=== PATIENT | female | born 1965 | race Caucasian/White ===

== ENCOUNTER 2016-10-17 00:06 | Emergency (ER) | payer OTHER, BC ==
--- NOTE | 2016-10-17 00:18 | PDOC ---
History of Present Illness - General Chief Complaint: Back Pain Stated Complaint: BACK PAIN/ANXIETY Time Seen by Provider: 10/17/16 00:17 History Source: Patient Exam Limitations: No Limitations - History of Present Illness Initial Comments: 10/17/16 00:22 This is a 50-year-old female with history of ankylosing spondylosis who is back pain for which she is taking medication. Patient became anxious and worried about her back pain and came in for evaluation. Patient denied any chest pain, shortness of breath, nausea, diaphoresis, vomiting or diarrhea. Patient denied any fevers or chills. Patient denied any cough or congestion. Patient is otherwise healthy said that she does have a history of anxiety for which she takes clonazepam but did not take any of her clonazepam prior to coming in. PAST MEDICAL HISTORY: no significant history PAST SURGICAL HISTORY: no significant history FAMILY HISTORY: no pertinant history SOCIAL HISTORY: Pt lives with family and is employed. MEDICATIONS: reviewed ALLERGIES: As per nursing notes Review of Systems General: No fevers or chills, no weakness, no weight loss HEENT: No change in vision. No sore throat,. No ear pain CardioVascular: No chest pain or shortness of breath Respiratory:No cough, or wheezing. Gastrointestinal: no nausea, vomitting, diarrhea or constipation, No rectal bleeding Genitourinary: No dysuria, hematuria, or frequency Musculoskeletal: Chronic back pain as per history of present illness Neurologic: No headache, vertigo, dizziness or loss of consciousness Psychiatric: nor depression Skin: No rashes or easy bruising Endocrine: no increased thirst or abnormal weight change Allergic: no skin or latex allergy All other systems reviewed and normal Exam: General: Well-nourished well-developed individual, no acute distress but very anxious HEENT: Throat: Normal, tonsils normal, no erythema or exudate Neck: Supple, no meningeal signs, no lymphadenopathy Eyes::Pupils equal reactive and round, extraocular motion intact Chest: Nontender to palpation Cardiac: S1-S2 normal, regular rate and rhythm, no murmurs rubs or gallops Respiratory: Lungs clear to auscultation bilateral Abdomen: Soft, nondistended, normal bowel sounds, nontender to palpation diffusely Extremities: Warm, dry, no cyanosis, clubbing, or edema Skin: No rashes Neuro: Alert and oriented x3, nonfocal exam, grossly intact, normal gait Psych: Normal mood and affect assessment and plan: Assessment and plan This is a 50-year-old female comes in with anxiety health secondary to chronic pain that she has patient had an exam and was reassured. Patient was told she should go home take some of her anxiety medication follow- up with her doctor. Past History - Past Medical History Allergies/Adverse Reactions: Allergies Allergy/AdvReac Type Severity Reaction Status Date / Time mushroom Allergy Verified 10/17/16 00:09 prochlorperazine edisylate AdvReac Intermediate jumping Verified 10/17/16 00:09 [From Compazine] out of my skin prochlorperazine maleate AdvReac Intermediate jumping Verified 10/17/16 00:09 [From Compazine] out of my skin Home Medications: Ambulatory Orders Dexlansoprazole [Dexilant] 60 mg PO DAILY 04/30/16 Oxycodone Sr [Oxycontin] 20 mg PO BID 04/30/16 Trazodone HCl 100 mg PO DAILY 04/30/16 Venlafaxine HCl [Effexor -] 150 mg PO DAILY 04/30/16 Zolpidem Tartrate [Ambien] 10 mg PO HS 05/02/16 Clonazepam [Klonopin] 0.5 mg PO TID tablet 05/18/16 Fluphenazine HCl 10 mg PO DAILY tablet 10/13/16 Anemia: Yes (TREATED WITH IRON IN THE PAST) Asthma: No Cancer: No Cardiac Disorders: No CVA: No COPD: Yes (MILD COPD-DX 2010 NO MEDS) CHF: No Dementia: No Diabetes: No GI Disorders: Yes (REFLUX) Disorders: No HTN: Yes (RECENT DX 05/2013 start norvasc) Hypercholesterolemia: No Liver Disease: No Seizures: No Thyroid Disease: No - Surgical History Abdominal Surgery: No Appendectomy: No Cardiac Surgery: No Cholecystectomy: No Lung Surgery: No Neurologic Surgery: No Orthopedic Surgery: No - Psycho/Social/Smoking Cessation Hx Anxiety: No Suicidal Ideation: No Smoking Status: No Smoking History: Former smoker Have you smoked in the past 12 months: No Number of Cigarettes Smoked Daily: 10 If you are a former smoker, when did you quit?: 2011 Hx Alcohol Use: Yes (RECOVERING ALCHOLIC,RECENT RELAPSE.) Drug/Substance Use Hx: Yes (PRESCRIBED.) Substance Use Type: Opiates, Prescribed Hx Substance Use Treatment: No *DC/Admit/Observation/Transfer Diagnosis at time of Disposition: Anxiety about health - Discharge Dispostion Disposition: HOME Condition at time of disposition: Stable Admit: No - Patient Instructions Additional Instructions: Take your clonazepam when you get home. Return to the emergency department immediately with ANY new, persistent or worsening symptoms. Continue any medications as previously prescribed by your physician. You should follow up with your primary doctor as soon as possible regarding today's emergency department visit. . Please make sure your doctor reviews the results of your emergency evaluation. Thank you for coming to the Emergency Department today for your care. It was a pleasure to see you today. Please note that your evaluation is INCOMPLETE until you follow-up with your doctor.
[2016-10-17 00:22] VITALS: BP 159/102; PULSE 68; TEMP 98; BMI 18.0
== END 2016-10-17 00:29 | disposition home or self-care (01) ==
LOC: FER 00:06
DX: F06.4 Anxiety disorder due to known physiological condition (principal); G89.29 Other chronic pain; K21.9 Gastro-esophageal reflux disease without esophagitis; I10 Essential (primary) hypertension; Z87.891 Personal history of nicotine dependence; D64.9 Anemia, unspecified
CPT/HCPCS: 99281-25

== ENCOUNTER 2017-03-06 19:41 | Emergency (ER) | payer OTHER, BC ==
[2017-03-06 19:47] VITALS: BMI 18.0
--- NOTE | 2017-03-06 19:51 | PDOC ---
Rapid Medical Evaluation Time Seen by Provider: 03/06/17 19:43 Medical Evaluation: Allergies Allergy/AdvReac Type Severity Reaction Status Date / Time mushroom Allergy Verified 10/17/16 00:09 prochlorperazine edisylate AdvReac Intermediate jumping Verified 10/17/16 00:09 [From Compazine] out of my skin prochlorperazine maleate AdvReac Intermediate jumping Verified 10/17/16 00:09 [From Compazine] out of my skin 03/06/17 19:43 I have performed a brief in-person evaluation of this patient. The patient presents with a chief complaint of: possible seizure tonight per pt' s sister. H/o depression/anxiety on klonopin, anemia, COPD Pertinent physical exam findings: Stable and oriented x 3 but appears somewhat somnolent I have ordered the following:chem/cbc/lactate/ua The patient will proceed to the ED for further evaluation. 03/06/17 19:47
[2017-03-06] MEDS ORDERED: SODIUM CHLORIDE 1,000 ML IV STA (20:20)
[2017-03-06 20:47] LABS: BASOPHIL 0.9 % (0-2.0); EOSINOPHIL 0.4 % (0-4.5); MCH 29.5 pg (25.7-33.7); MCHC 32.6 g/dl (32.0-36.0); MEAN CELL VOLUME 90.3 fl (80-96); MEAN PLT VOLUME 9.9 fl (7.5-11.1); NEUTROPHILS 62.4 % (42.8-82.8); PLATELET COUNT 169 K/MM3 (134-434); RDW 13.3 % (11.6-15.6); WHITE BLOOD COUNT 3.9 K/mm3 (4.0-10.0)
[2017-03-06 20:48] LABS: URINE APPEARANCE CLEAR; URINE BILIRUBIN NEGATIVE (NEGATIVE); URINE BLOOD NEGATIVE (NEGATIVE); URINE COLOR STRAW; URINE GLUCOSE (UA) NEGATIVE (NEGATIVE); URINE KETONE TRACE (NEGATIVE); URINE NITRITE NEGATIVE (NEGATIVE); URINE PROTEIN NEGATIVE (NEGATIVE); URINE UROBILINOGEN NEGATIVE E.U./dl (0.2-1.0)
[2017-03-06 20:57] LABS: URINE MARIJUANA THC NEGATIVE ng/ml (CUTOFF=50)
[2017-03-06 21:15] LABS: ALK PHOS 82 U/L (45-117); ANION GAP 7 (8-16); BILIRUBIN,TOTAL 0.3 mg/dL (0.2-1.0); CO2 29 mmol/L (21-32); CREATININE 0.6 mg/dL (0.55-1.02); GLUCOSE,RANDOM 88 mg/dL (74-106); SGOT/AST 18 U/L (15-37); SGPT/ALT 32 U/L (12-78); TOT PROT 6.7 g/dl (6.4-8.2)
[2017-03-06 21:27] LABS: URINE LEUK ESTERASE TRACE (NEGATIVE)
[2017-03-06 21:38] LABS: URINE WBC 1 /hpf (3-5)
[2017-03-06] MEDS ORDERED: ACETAMINOPHEN/CAFFEINE/BUTALBITAL 1 TAB PO ONE (22:09)
[2017-03-06] MEDS ORDERED: ACETAMINOPHEN/CAFFEINE/BUTALBITAL 1 TAB ONE (22:18)
--- NOTE | 2017-03-06 22:27 | PDOC ---
History of Present Illness - General Chief Complaint: Seizure Stated Complaint: SEIZURE Time Seen by Provider: 03/06/17 19:43 History Source: Patient, Family (Sister) Exam Limitations: No Limitations - History of Present Illness Initial Comments: 03/06/17 22:17 51yo Female patient w/ PmHx: Depression, Anxiety, "Huffing compressed air," presents to ED with sister c/o possible seizure. Sister states patient has hx: of huffing compressed air, had abstain from this behavior for 11 years when she relapse last fall. Sister states, she believes patient huffed " Compressed gas duster," and witnessed patient have a seizure. Sister described patient as having a tonic-like seizure for approximately 5 mins, then stopped, appeared confused then came to after a few seconds. Sister encouraged patient to come in for evaluation. The main ingredient in these compressed gas can is difluoroethane. Past History - Past Medical History Allergies/Adverse Reactions: Allergies Allergy/AdvReac Type Severity Reaction Status Date / Time chlorpromazine HCl Allergy Verified 03/06/17 23:57 [From Thorazine] mushroom Allergy Verified 03/06/17 23:57 prochlorperazine edisylate AdvReac Intermediate jumping Verified 03/06/17 23:57 [From Compazine] out of my skin prochlorperazine maleate AdvReac Intermediate jumping Verified 03/06/17 23:57 [From Compazine] out of my skin Home Medications: Ambulatory Orders Clonazepam [Klonopin] 0.5 mg PO TID tablet 05/18/16 Fluphenazine HCl 10 mg PO DAILY tablet 10/13/16 Zolpidem Tartrate [Ambien] 5 mg PO HS #5 tablet 02/16/17 Anemia: Yes (TREATED WITH IRON IN THE PAST) Asthma: No Cancer: No Cardiac Disorders: No CVA: No COPD: Yes (MILD COPD-DX 2010 NO MEDS) CHF: No Dementia: No Diabetes: No GI Disorders: Yes (REFLUX) Disorders: No HTN: Yes (RECENT DX 05/2013 start norvasc) Hypercholesterolemia: No Liver Disease: No Psychiatric Problems: Yes (depression, anxiety) Seizures: No Thyroid Disease: No - Surgical History Abdominal Surgery: No Appendectomy: No Cardiac Surgery: No Cholecystectomy: No Lung Surgery: No Neurologic Surgery: No Orthopedic Surgery: No - Psycho/Social/Smoking Cessation Hx Anxiety: No Suicidal Ideation: No Smoking Status: No Smoking History: Never smoked Have you smoked in the past 12 months: No Number of Cigarettes Smoked Daily: 10 If you are a former smoker, when did you quit?: 2011 Information on smoking cessation initiated: No 'Breaking Loose' booklet given: 10/17/16 Hx Alcohol Use: Yes (RECOVERING ALCHOLIC,RECENT RELAPSE.) Drug/Substance Use Hx: Yes (PRESCRIBED.) Substance Use Type: Opiates, Prescribed Hx Substance Use Treatment: No *Physical Exam - Vital Signs Last Vital Signs Temp Pulse Resp BP Pulse Ox 97.8 F 77 18 125/72 100 03/06/17 19:44 03/06/17 19:44 03/06/17 19:44 03/06/17 19:44 03/06/17 19:44 Heart Score/ECG Review - History History: Slightly suspicious - Electrocardiogram EKG: Normal - Age Age: 45-65 - Risk Factors Risk Factors Heart Score: No Hx Hypercholesterolemia, No Hx Hypertension, No Hx Diabetes, No Smoking History, No Positive family hx of cardiac disease, No Hx Obesity Based on the list above the patient has:: No risk factors known - Troponin Troponin: </= normal limit - Score Heart Score - Total: 1 - ECG Impressions Normal ECG: Yes Non-specific ST Elevation: No Ischemic Changes: No Bradycardia: Yes Torsades alison Pointes: No WPW: No Comment:: 03/07/17 03:56 Sinus Bradycardia. Patient resting/sleeping during this ECG. Upon ambulation out of bed patient HR >65 bpm. ED Treatment Course - LABORATORY CBC & Chemistry Diagram: 03/06/17 20:30 03/06/17 20:30 - ADDITIONAL ORDERS Additional order review: Laboratory Results 03/06/17 03/06/17 03/06/17 21:30 20:30 20:30 Sodium Potassium Chloride Carbon Dioxide Anion Gap BUN Creatinine Creat Clearance w eGFR Random Glucose Lactic Acid 0.9 Calcium Total Bilirubin AST ALT Alkaline Phosphatase Total Protein Albumin Serum , Qual Negative Urine Color Urine Appearance Urine pH Urine Protein Urine Glucose (UA) Urine Ketones Urine Blood Urine Nitrite Urine Bilirubin Urine Urobilinogen Ur Leukocyte Esterase Urine RBC Urine WBC Ur Epithelial Cells Opiates Screen Negative Methadone Screen Negative Barbiturate Screen Negative Phencyclidine Screen Negative Ur Amphetamines Screen Negative MDMA (Ecstasy) Screen Negative Benzodiazepines Screen Negative Cocaine Screen Negative U Marijuana (THC) Screen Negative 03/06/17 03/06/17 20:30 20:30 Sodium 142 Potassium 3.7 Chloride 106 Carbon Dioxide 29 D Anion Gap 7 L BUN 14 D Creatinine 0.6 D Creat Clearance w eGFR > 60 Random Glucose 88 D Lactic Acid Calcium 9.0 Total Bilirubin 0.3 AST 18 ALT 32 Alkaline Phosphatase 82 Total Protein 6.7 Albumin 4.0 Serum , Qual Urine Color Straw Urine Appearance Clear Urine pH 7.0 D Urine Protein Negative Urine Glucose (UA) Negative Urine Ketones Trace H Urine Blood Negative Urine Nitrite Negative Urine Bilirubin Negative Urine Urobilinogen Negative Ur Leukocyte Esterase Trace H D Urine RBC None Urine WBC 1 Ur Epithelial Cells Rare Opiates Screen Methadone Screen Barbiturate Screen Phencyclidine Screen Ur Amphetamines Screen MDMA (Ecstasy) Screen Benzodiazepines Screen Cocaine Screen U Marijuana (THC) Screen 03/06/17 20:30 RBC 4.23 MCV 90.3 MCHC 32.6 RDW 13.3 MPV 9.9 Neutrophils % 62.4 Lymphocytes % 26.9 Monocytes % 9.4 Eosinophils % 0.4 D Basophils % 0.9 - RADIOLOGY Radiology Studies Ordered: Category Date Time Status HEAD CT WITHOUT CONTRAST [CT] Stat CT Scan 03/06/17 20:20 Completed CHEST PA LAT W/OB [RAD] Stat Radiology 03/06/17 20:20 Ordered - Medications Given in the ED: ED Medications Discontinued Medications Generic Name Dose Route Start Last Admin Trade Name Freq PRN Reason Stop Dose Admin Sodium Chloride 1,000 mls @ 1,000 mls/hr 03/06/17 20:20 03/06/17 20:57 Normal Saline - IV 03/06/17 21:19 1,000 mls/hr ASDIR STA Administration *DC/Admit/Observation/Transfer Diagnosis at time of Disposition: Seizure - Discharge Dispostion Disposition: HOME Condition at time of disposition: Improved Admit: No - Patient Instructions Printed Discharge Instructions: DI for Seizure Disorder -- Adult Additional Instructions: FOLLOW UP WITH YOUR PRIMARY CARE PROVIDER THIS WEEK FOR FURTHER TREATMENT AND EVALUATION. RETURN IF SYMPTOMS WORSEN OR ANY CONCERNS FOR FURTHER EVALUATION. Print Language: UZBEK
[2017-03-06 22:47] LABS: TROPONIN I < 0.02 ng/ml (0.00-0.05)
--- NOTE | 2017-03-06 23:16 | PDOC ---
*Physical Exam - Vital Signs Last Vital Signs Temp Pulse Resp BP Pulse Ox 97.8 F 77 18 125/72 100 03/06/17 19:44 03/06/17 19:44 03/06/17 19:44 03/06/17 19:44 03/06/17 19:44 ED Treatment Course - LABORATORY CBC & Chemistry Diagram: 03/06/17 20:30 03/06/17 20:30 - ADDITIONAL ORDERS Additional order review: Laboratory Results 03/06/17 03/06/17 03/06/17 21:30 20:30 20:30 Sodium Potassium Chloride Carbon Dioxide Anion Gap BUN Creatinine Creat Clearance w eGFR Random Glucose Lactic Acid 0.9 Calcium Total Bilirubin AST ALT Alkaline Phosphatase Creatine Kinase Troponin I Total Protein Albumin Serum , Qual Negative Urine Color Urine Appearance Urine pH Ur Specific Coleman Urine Protein Urine Glucose (UA) Urine Ketones Urine Blood Urine Nitrite Urine Bilirubin Urine Urobilinogen Ur Leukocyte Esterase Urine RBC Urine WBC Ur Epithelial Cells Opiates Screen Negative Methadone Screen Negative Barbiturate Screen Negative Phencyclidine Screen Negative Ur Amphetamines Screen Negative MDMA (Ecstasy) Screen Negative Benzodiazepines Screen Negative Cocaine Screen Negative U Marijuana (THC) Screen Negative 03/06/17 03/06/17 03/06/17 20:30 20:30 20:15 Sodium 142 Potassium 3.7 Chloride 106 Carbon Dioxide 29 D Anion Gap 7 L BUN 14 D Creatinine 0.6 D Creat Clearance w eGFR > 60 Random Glucose 88 D Lactic Acid Calcium 9.0 Total Bilirubin 0.3 AST 18 ALT 32 Alkaline Phosphatase 82 Creatine Kinase 74 Troponin I < 0.02 Total Protein 6.7 Albumin 4.0 Serum , Qual Urine Color Straw Urine Appearance Clear Urine pH 7.0 D Ur Specific Coleman 1.010 Urine Protein Negative Urine Glucose (UA) Negative Urine Ketones Trace H Urine Blood Negative Urine Nitrite Negative Urine Bilirubin Negative Urine Urobilinogen Negative Ur Leukocyte Esterase Trace H D Urine RBC None Urine WBC 1 Ur Epithelial Cells Rare Opiates Screen Methadone Screen Barbiturate Screen Phencyclidine Screen Ur Amphetamines Screen MDMA (Ecstasy) Screen Benzodiazepines Screen Cocaine Screen U Marijuana (THC) Screen 03/06/17 20:30 RBC 4.23 MCV 90.3 MCHC 32.6 RDW 13.3 MPV 9.9 Neutrophils % 62.4 Lymphocytes % 26.9 Monocytes % 9.4 Eosinophils % 0.4 D Basophils % 0.9 - Medications Given in the ED: ED Medications Discontinued Medications Generic Name Dose Route Start Last Admin Trade Name Eliezer PRN Reason Stop Dose Admin Acetaminophen/Butalbital/Caffeine 1 tablet 03/06/17 22:09 03/06/17 22:25 Fioricet - PO 03/06/17 22:10 1 tablet ONCE ONE Administration Sodium Chloride 1,000 mls @ 1,000 mls/hr 03/06/17 20:20 03/06/17 20:57 Normal Saline - IV 03/06/17 21:19 1,000 mls/hr ASDIR STA Administration Medical Decision Making - Medical Decision Making 03/06/17 23:16 agree with care from [employer] Srinivas *DC/Admit/Observation/Transfer Diagnosis at time of Disposition: Seizure - Referrals Referrals: Eriberto Rodriguez MD [Primary Care Provider] - - Patient Instructions Printed Discharge Instructions: DI for Seizure Disorder -- Adult Additional Instructions: FOLLOW UP WITH YOUR PRIMARY CARE PROVIDER THIS WEEK FOR FURTHER TREATMENT AND EVALUATION. RETURN IF SYMPTOMS WORSEN OR ANY CONCERNS FOR FURTHER EVALUATION. Print Language: ANGUILLAN
[2017-03-07 03:51] VITALS: BP 120/70; PULSE 64; TEMP 98
== END 2017-03-07 04:10 | disposition home or self-care (01) ==
LOC: JER 19:41
DX: G40.89 Other seizures (principal); I10 Essential (primary) hypertension; J44.9 Chronic obstructive pulmonary disease, unspecified; F41.8 Other specified anxiety disorders; D64.9 Anemia, unspecified
CPT/HCPCS: 36415; 70450-TC; 71022-TC; 80053; 80307; 81003; 81015; 82550; 83605; 84484; 84703; 85025; 99283-25

== ENCOUNTER 2018-11-03 16:01 | Observation (INO) | payer OTHER, BC ==
[2018-11-03 16:32] VITALS: BMI 16.2
[2018-11-03] MEDS ORDERED: DIPHTH,PERTUSS(ACELL),TET 0.5 ML DISP.SYRIN IM ONE ×2 (17:16→18:27)
--- NOTE | 2018-11-03 17:27 | PDOC ---
History of Present Illness - General Chief Complaint: Injury Stated Complaint: injury, nose,back Time Seen by Provider: 11/03/18 16:02 - History of Present Illness Initial Comments: 11/03/18 18:35 The patient is a 52 year old female, with a significant PMH of ankylosing spondylosis, Hbl 27+, spinal stenosis, and depression who presents to the emergency department s/p fall at 4am today. The patient states she was helping her mom out of bed today when they both fell backward, hitting her back on a railing and then falling a different way and hitting her nose on a desk. Patient reports able to ambulate but that it exacerbates the pain. Patient initially denies LOC, but later informed the team that she may have actually passed out. States she did not want to notify us earlier because the doctors always tell her she has a "weight problem." She also reports muscle spasms in her low back and lower extremities. Unknown last tetanus. The patient denies chest pain, shortness of breath, headache and dizziness. Denies fever, chills, nausea, vomit, diarrhea and constipation. Denies dysuria, frequency, urgency and hematuria. Allergies: chlorpromazine HCl, mushroom, prochlorperazine edisylate, prochlorperazine maleate PCP: Dr. Rodriguez Past History - Past Medical History Allergies/Adverse Reactions: Allergies Allergy/AdvReac Type Severity Reaction Status Date / Time chlorpromazine HCl Allergy Verified 09/17/18 17:32 [From Thorazine] mushroom Allergy Verified 09/17/18 17:32 prochlorperazine edisylate AdvReac Intermediate jumping Verified 09/17/18 17:32 [From Compazine] out of my skin prochlorperazine maleate AdvReac Intermediate jumping Verified 09/17/18 17:32 [From Compazine] out of my skin Home Medications: Ambulatory Orders clonazePAM [Klonopin] 1 mg PO TID tablet 05/18/16 Zolpidem Tartrate [Ambien] 5 mg PO HS #5 tablet 02/16/17 Oxycodone HCl/Acetaminophen [Percocet 10-325 mg Tablet] 1 each PO QID PRN Venlafaxine HCl ER [Effexor Xr -] 150 mg PO DAILY 02/26/18 oxyCODONE SR [Oxycontin] 20 mg PO BID 02/26/18 Metoclopramide HCl [Reglan] 5 mg PO QID PRN #20 tablet MDD 4 09/17/18 traZODone HCL [Trazodone HCl] 200 mg PO HS 09/17/18 Anemia: Yes (TREATED WITH IRON IN THE PAST) Asthma: No Cancer: No Cardiac Disorders: No CVA: No COPD: No CHF: No Dementia: No Diabetes: No GI Disorders: Yes (REFLUX) Disorders: No HTN: No Hypercholesterolemia: No Liver Disease: No Psychiatric Problems: Yes (depression, anxiety) Seizures: No Thyroid Disease: No - Surgical History Abdominal Surgery: No Appendectomy: No Cardiac Surgery: No Cholecystectomy: No Lung Surgery: No Neurologic Surgery: No Orthopedic Surgery: No - Suicide/Smoking/Psychosocial Hx Smoking Status: No Smoking History: Never smoked Have you smoked in the past 12 months: No Number of Cigarettes Smoked Daily: 10 If you are a former smoker, when did you quit?: 2011 Information on smoking cessation initiated: No 'Breaking Loose' booklet given: 10/17/16 Hx Alcohol Use: No Drug/Substance Use Hx: No Substance Use Type: Opiates, Prescribed Hx Substance Use Treatment: No Review of Systems - Review of Systems Comments:: 11/03/18 18:36 GENERAL/CONSTITUTIONAL: No fever or chills. No weakness. HEAD, EYES, EARS, NOSE AND THROAT: No change in vision. No ear pain or discharge. No sore throat. GASTROINTESTINAL: No nausea, vomiting, diarrhea or constipation. GENITOURINARY: No dysuria, frequency, or change in urination. CARDIOVASCULAR: No chest pain or shortness of breath. RESPIRATORY: No cough, wheezing, or hemoptysis. MUSCULOSKELETAL: (+) back pain. (+) nose pain. (+)low back muscle spasms. No neck pain. SKIN: No rash NEUROLOGIC: No headache, vertigo, or change in strength/sensation. +LOC ENDOCRINE: No increased thirst. No abnormal weight change. HEMATOLOGIC/LYMPHATIC: No anemia, easy bleeding, or history of blood clots. ALLERGIC/IMMUNOLOGIC: No hives or skin allergy. *Physical Exam - Vital Signs Last Vital Signs Temp Pulse Resp BP Pulse Ox 98.3 F 80 20 118/88 96 11/03/18 16:02 11/03/18 16:02 11/03/18 16:02 11/03/18 16:02 11/03/18 16:02 - Physical Exam Comments: 11/03/18 18:37 GENERAL: Awake, alert, and fully oriented, in no acute distress HEAD: No signs of trauma EYES: PERRLA, EOMI, sclera anicteric, conjunctiva clear ENT: (+) Superficial abrasion and edema over nasal bridge. Auricles normal inspection, hearing grossly normal, nares patent, oropharynx clear without exudates. Moist mucosa NECK: Normal ROM, supple, no lymphadenopathy, JVD, or masses LUNGS: Breath sounds equal, clear to auscultation bilaterally. No wheezes, and no crackles HEART: Regular rate and rhythm, normal S1 and S2, no murmurs, rubs or gallops ABDOMEN: Soft, nontender, normoactive bowel sounds. No guarding, no rebound. No masses EXTREMITIES: Normal range of motion, no edema. No cords, erythema, or tenderness BACK: No midline spinal tenderness in cervical/thoracic/lumbar region NEUROLOGICAL: Normal speech, cranial nerves intact, equal strength and sensation b/l SKIN: Warm, Dry, normal turgor, no rashes or lesions noted. Moderate Sedation - Procedure Monitoring Vital Signs: Procedure Monitoring Vital Signs Temperature 98.3 F 11/03/18 16:02 Pulse Rate 80 11/03/18 16:02 Respiratory Rate 20 11/03/18 16:02 Blood Pressure 118/88 11/03/18 16:02 O2 Sat by Pulse Oximetry (%) 96 11/03/18 16:02 ED Treatment Course - LABORATORY CBC & Chemistry Diagram: 11/04/18 07:00 11/04/18 07:00 - RADIOLOGY Radiology Studies Ordered: Category Date Time Status CERVICAL SPINE CT W/O CONTR [CT] Stat CT Scan 11/03/18 17:[address] W/O CONTRAST [CT] Stat CT Scan 11/03/18 17:[address] WITHOUT CONTRAST [CT] Stat CT Scan 11/03/18 17:12 Ordered Medical Decision Making - Medical Decision Making 11/03/18 17:20 52yo F hx ankylosing spondylitis presents to the ED with nasal and back pain after her mother fell onto her and her face struck a desk. Pt initially denies LOC, but later states she was not sure. Vitals wnl. Exam with superficial abrasion and edema over the bridge of her nose. No other bony ttp on the face. No midline spinal ttp, pt is neuro intact. Plan for trauma w/u with CTH, facial bones, CT c-spine, labs, EKG and reassess. 11/03/18 19:00 Abrasion on nose cleaned and irrigated. Does not need stiches or dermabond, very superficial. S/p tdap Labs thus far wnl. CT facial bones and CT c-spine wnl CTH pending but looks normal on my read EKG with new anterior TWI. In light of LOC, plan to admit to obs Once CTH read, pt to be admitted Case signed out to overnight attending for mgmt/dispo *DC/Admit/Observation/Transfer Diagnosis at time of Disposition: Syncope, Prolonged Q-T interval on ECG - Referrals - Patient Instructions - Post Discharge Activity
[2018-11-03] MEDS ORDERED: METHOCARBAMOL 500 MG TABLET PO ONE (18:23)
[2018-11-03 18:24] LABS: BASO % 0.7 % (0-2.0); EOS % 0.5 % (0-4.5); HEMATOCRIT 40.2 % (32.4-45.2); HEMOGLOBIN 13.4 GM/dl (10.7-15.3); MCH 31.1 pg (25.7-33.7); MCHC 33.4 g/dl (32.0-36.0); MEAN CELL VOLUME 93.1 fl (80-96); MEAN PLT VOLUME 8.4 fl (7.5-11.1); MONO % 13.6 % (3.8-10.2); NEUT % 43.2 % (42.8-82.8); PLATELET COUNT 244 K/MM3 (134-434); RBC 4.32 M/mm3 (3.60-5.2); RDW 12.4 % (11.6-15.6); WHITE BLOOD COUNT 3.8 K/mm3 (4.0-10.8)
[2018-11-03] MEDS ORDERED: METHOCARBAMOL 500 MG TABLET ONE ×2 (18:24→18:30)
[2018-11-03 18:43] LABS: ALBUMIN 4.4 g/dl (3.4-5.0); ALK PHOS 93 U/L (45-117); ANION GAP 12 MMOL/L (8-16); BLOOD UREA NITROGEN 15 mg/dl (7-18); CALCIUM 9.7 mg/dl (8.5-10); CHLORIDE 94 mmol/L (98-107); CO2 29 mmol/L (21-32); CREATININE 0.7 mg/dl (0.55-1.3); GLUCOSE,RANDOM 103 mg/dl (74-106); POTASSIUM 3.2 mmol/L (3.5-5.1); SGOT/AST 35 U/L (15-37); SGPT/ALT 36 U/L (13-61); SODIUM 135 mmol/L (136-145); TOT PROT 6.9 g/dl (6.4-8.2)
[2018-11-03 19:02] LABS: ACTIVATED PTT 27.3 SECONDS (25.2-36.5)
[2018-11-03 19:07] LABS: INR 1.17 (0.82-1.09); PROTHROMBIN TIME (PATIENT) 13.1 SEC (10.2-13.0)
--- NOTE | 2018-11-03 19:33 | PDOC ---
*Physical Exam - Vital Signs Last Vital Signs Temp Pulse Resp BP Pulse Ox 98.3 F 80 20 118/88 96 11/03/18 16:02 11/03/18 16:02 11/03/18 16:02 11/03/18 16:02 11/03/18 16:02 ED Treatment Course - LABORATORY CBC & Chemistry Diagram: 11/03/18 18:16 11/03/18 18:16 - ADDITIONAL ORDERS Additional order review: Laboratory Results 11/03/18 11/03/18 11/03/18 18:50 18:16 18:16 PT with INR 13.1 H INR 1.17 PTT (Actin FS) 27.3 Sodium 135 L Potassium 3.2 L Chloride 94 L Carbon Dioxide 29 Anion Gap 12 BUN 15 Creatinine 0.7 Creat Clearance w eGFR > 60 Random Glucose 103 Calcium 9.7 Total Bilirubin 1.0 AST 35 ALT 36 Alkaline Phosphatase 93 Troponin I < 0.03 Total Protein 6.9 Albumin 4.4 11/03/18 18:16 RBC 4.32 MCV 93.1 MCHC 33.4 RDW 12.4 MPV 8.4 Neutrophils % 43.2 Lymphocytes % 42.0 H Monocytes % 13.6 H Eosinophils % 0.5 Basophils % 0.7 - Medications Given in the ED: ED Medications Discontinued Medications Generic Name Dose Route Start Last Admin Trade Name Freq PRN Reason Stop Dose Admin Diphtheria/Tetanus/Acell Pertussis 0.5 ml 11/03/18 17:16 11/03/18 18:27 Boostrix - IM 11/03/18 17:17 0.5 ml .ONCE ONE Administration Methocarbamol 1,000 mg 11/03/18 18:23 11/03/18 18:30 Robaxin - PO 11/03/18 18:24 1,000 mg ONCE ONE Administration Oxycodone/Acetaminophen 1 combo 11/03/18 18:23 11/03/18 18:28 Percocet 5/325 - PO 11/03/18 18:24 1 combo ONCE ONE Administration Progress Note - Progress Note Progress Note: Patient transferred to pr from Dr. Marie at 1900 hrs. This is a 52-year-old female with a story that is changing while here in the ED however patient had a syncopal event timing of the syncopal event is uncertain and patient has new flipped T's on echocardiograms as well as a prolonged QT. Patients initial troponin is negative Patient will be given an observation bed to rule her out for cardiac causes as well as a syncope workup *DC/Admit/Observation/Transfer Diagnosis at time of Disposition: Prolonged Q-T interval on ECG Syncope Qualifiers: Syncope type: unspecified Qualified Code(s): R55 - Syncope and collapse - Discharge Dispostion Decision to Admit order: Yes - Referrals - Patient Instructions - Post Discharge Activity
--- NOTE | 2018-11-03 21:22 | HP ---
Admitting History and Physical - Primary Care Physician PCP: Eriberto Rodriguez - Admission Chief Complaint: Syncope History of Present Illness: This is a 52 y/o woman with a PMHx of: Ankylosing Spondylosis, HBL 27+, Spinal Stenosis, Anxiety, Depression, Anorexia. Who presents to the ED with s/p syncopal episode x 1 day. Patient reports while helping her mother out of bed who is around 150 lbs and has edema to her LE, her mother fell on her causing her to hit her back and her nose. The patient is unsure of LOC. She reports having increased pain and spasms to her back. The patient also reports decreased appetite over the last 3 days. She reports unintentional weight loss > 15 lbs over 3 months. Patient denies fever, chills, cough, SOB, CP, palpitations, AP, N/V/D, constipation, dysuria. 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) - Smoking History Smoking history: Never smoked Have you smoked in the past 12 months: No Aproximately how many cigarettes per day: 10 If you are a former smoker, when did you quit?: 2011 - Alcohol/Substance Use Hx Alcohol Use: No - Social History Usual Living Arrangement: Yes: With Parent ADL: Independent History of Recent Travel: No Home Medications - Allergies Allergies/Adverse Reactions: Allergies Allergy/AdvReac Type Severity Reaction Status Date / Time chlorpromazine HCl Allergy Verified 09/17/18 17:32 [From Thorazine] mushroom Allergy Verified 09/17/18 17:32 prochlorperazine edisylate AdvReac Intermediate jumping Verified 09/17/18 17:32 [From Compazine] out of my skin prochlorperazine maleate AdvReac Intermediate jumping Verified 09/17/18 17:32 [From Compazine] out of my skin - Home Medications Home Medications: Ambulatory Orders clonazePAM [Klonopin] 1 mg PO TID tablet 05/18/16 Zolpidem Tartrate [Ambien] 5 mg PO HS #5 tablet 02/16/17 Oxycodone HCl/Acetaminophen [Percocet 10-325 mg Tablet] 1 each PO QID PRN Venlafaxine HCl ER [Effexor Xr -] 150 mg PO DAILY 02/26/18 oxyCODONE SR [Oxycontin] 20 mg PO BID 02/26/18 Metoclopramide HCl [Reglan] 5 mg PO QID PRN #20 tablet MDD 4 09/17/18 traZODone HCL [Trazodone HCl] 200 mg PO HS 09/17/18 Family Disease History - Family Disease History Family Disease History: CA: Father (melanoma 91), Mother (breast ca bilateral 50 and 79), Sister (x 2 breast ca at age 40) Review of Systems - Review of Systems Constitutional: reports: Loss of Appetite, Unintentional Wgt. Loss Eyes: reports: No Symptoms HENT: reports: Other (hematoma to forehead) Neck: reports: No Symptoms Cardiovascular: reports: No Symptoms Respiratory: reports: No Symptoms Gastrointestinal: reports: No Symptoms Genitourinary: reports: No Symptoms Breasts: reports: No Symptoms Reported Musculoskeletal: reports: Back Pain Integumentary: reports: Other (abrasion to nose) Neurological: reports: Syncope Endocrine: reports: No Symptoms Hematology/Lymphatic: reports: No Symptoms Psychiatric: reports: No Symptoms Physical Examination Vital Signs: Vital Signs Temperature 98.3 F 11/03/18 16:02 Pulse Rate 80 11/03/18 16:02 Respiratory Rate 20 11/03/18 16:02 Blood Pressure 118/88 11/03/18 16:02 O2 Sat by Pulse Oximetry (%) 96 11/03/18 16:02 Constitutional: Yes: Calm, Cachectic Eyes: Yes: WNL, Conjunctiva Clear, EOM Intact, PERRL HENT: Yes: WNL, Atraumatic, Normocephalic Neck: Yes: WNL, Supple, Trachea Midline Cardiovascular: Yes: Regular Rate and Rhythm, S1, S2 Respiratory: Yes: WNL, Regular, CTA Bilaterally Gastrointestinal: Yes: Normal Bowel Sounds, Soft ...Rectal Exam: Yes: Deferred Renal/: Yes: WNL Breast(s): Yes: WNL Musculoskeletal: Yes: Back Pain Extremities: Yes: WNL Edema: No Peripheral Pulses WNL: Yes Integumentary: Yes: Other (abrasion to nose) Neurological: Yes: WNL, Alert, Oriented, Cran Nerves II-XII Intact ...Motor Strength: WNL Psychiatric: Yes: WNL, Alert, Oriented Labs: CBC, BMP 11/03/18 18:16 11/03/18 18:16 Laboratory Results - last 24 hr 11/03/18 11/03/18 11/03/18 18:16 18:16 18:16 WBC 3.8 L RBC 4.32 Hgb 13.4 Hct 40.2 MCV 93.1 MCH 31.1 MCHC 33.4 RDW 12.4 Plt Count 244 MPV 8.4 Absolute Neuts (auto) 1.6 Neutrophils % 43.2 Lymphocytes % 42.0 H Monocytes % 13.6 H Eosinophils % 0.5 Basophils % 0.7 PT with INR 13.1 H INR 1.17 PTT (Actin FS) 27.3 Sodium 135 L Potassium 3.2 L Chloride 94 L Carbon Dioxide 29 Anion Gap 12 BUN 15 Creatinine 0.7 Creat Clearance w eGFR > 60 Random Glucose 103 Calcium 9.7 Total Bilirubin 1.0 AST 35 ALT 36 Alkaline Phosphatase 93 Troponin I Total Protein 6.9 Albumin 4.4 11/03/18 11/04/18 18:50 00:00 WBC RBC Hgb Hct MCV MCH MCHC RDW Plt Count MPV Absolute Neuts (auto) Neutrophils % Lymphocytes % Monocytes % Eosinophils % Basophils % PT with INR INR PTT (Actin FS) Sodium Potassium Chloride Carbon Dioxide Anion Gap BUN Creatinine Creat Clearance w eGFR Random Glucose Calcium Total Bilirubin AST ALT Alkaline Phosphatase Troponin I < 0.03 < 0.02 Total Protein Albumin Intake & Output 11/01/18 11/02/18 11/03/18 11/04/18 23:59 23:59 23:59 23:59 Weight 49.895 kg Prescription Monitoring Program Others' Prescriptions Patient Name: Gertrudis Cook Date: 1965 Address: [address] [place] [address] [place] [address] Sex: Female Rx Written Rx Dispensed Drug Quantity Days Supply Prescriber Name 10/24/2018 10/27/2018 oxycontin er 20 mg tablet 60 30 Eriberto Rodriguez MD 10/17/2018 10/19/2018 oxycodone-acetaminophen 10-325 mg tab 150 30 Eriberto Rodriguez MD 10/03/2018 10/10/2018 zolpidem tart er 12.5 mg tab 30 30 Louis Tapia MD 09/26/2018 09/28/2018 clonazepam 1 mg tablet 75 30 Louis Tapia MD 09/26/2018 09/28/2018 oxycontin er 20 mg tablet 60 30 Eriberto Rodriguez MD 09/13/2018 09/20/2018 oxycodone-acetaminophen 10-325 mg tab 150 30 Eriberto Rodriguez MD Patient Name: Gertrudis Cook Date: 1965 Address: [address] [place] [address] [id number] [place] [address] Sex: Female Rx Written Rx Dispensed Drug Quantity Days Supply Prescriber Name 10/26/2018 10/26/2018 clonazepam 1 mg tablet 21 7 Louis Tapia MD 10/17/2018 10/17/2018 clonazepam 0.5 mg tablet 48 8 Louis Tapia MD Imaging - Results Chest X-ray: Image Reviewed X-ray: Image Reviewed EKG: Image Reviewed (SR with non specific T wave Prolonged QT QT/QTc 400/464) Problem List - Problems (1) Syncope Assessment/Plan: Likely secondary to Arrhythmia vs Medication vs Dehydration Cardiac monitoring Serial Enzymes Echo Appreciate Cardiology consult Monitor CBC, BMP Fall Precautions Code(s): R55 - SYNCOPE AND COLLAPSE Qualifiers: Syncope type: unspecified Qualified Code(s): R55 - Syncope and collapse (2) Prolonged Q-T interval on ECG Assessment/Plan: Likely secondary to Medication Continue Cardiac monitoring Hold home meds- Trazodone, Reglan Code(s): R94.31 - ABNORMAL ELECTROCARDIOGRAM [ECG] [EKG] (3) Hypokalemia Assessment/Plan: Likely secondary to poor appetite Repleted with KCL Monitor BMP Code(s): E87.6 - HYPOKALEMIA (4) Anxiety and depression Assessment/Plan: Continue Klonipin Will need to verify with pt's home pharmacy if still taking Effexor Code(s): F41.9 - ANXIETY DISORDER, UNSPECIFIED; F32.9 - MAJOR DEPRESSIVE DISORDER, SINGLE EPISODE, UNSPECIFIED (5) History of anorexia nervosa Assessment/Plan: f/u with Psychiatry outpatient Code(s): Z86.59 - PERSONAL HISTORY OF OTHER MENTAL AND BEHAVIORAL DISORDERS (6) Cachexia Assessment/Plan: See above RD consult Encourage small frequent meals f/u with PCP outpatient Code(s): R64 - CACHEXIA Assessment/Plan This is a 52 y/o woman placed in Tele Observation for Syncope for further evaluation of their emergent condition Plan: See problem List FEN PO fluids as tolerated Replete lytes prn Regular Diet DVT ppx OOB SCDs Dispo: Observation Visit type - Emergency Visit Emergency Visit: Yes ED Registration Date: 11/03/18 Care time: The patient presented to the Emergency Department on the above date and was hospitalized for further evaluation of their emergent condition. - New Patient This patient is new to me today: Yes Date on this admission: 11/03/18 - Critical Care Critical Care patient: No
[2018-11-03] MEDS ORDERED: KETOROLAC TROMETHAMINE 15 MG/ML VIAL IVPUSH ONE (22:34)
[2018-11-03] MEDS ORDERED: oxyCODONE HCL 5 MG TABLET PO ONE (23:22)
[2018-11-03] MEDS ORDERED: ZOLPIDEM TARTRATE 5 MG TABLET PO ONE (23:23)
[2018-11-04] MEDS ORDERED: POTASSIUM CHLORIDE TABS 20 MEQ TABLET.ER (FP) PO ONE ×2 (04:35→09:26)
[2018-11-04] MEDS ORDERED: oxyCODONE HCL 5 MG TABLET PO ONE (06:20)
--- NOTE | 2018-11-04 08:39 | CON.CARD ---
Consult Consult Specialty:: cardio - History of Present Illness Chief Complaint: fall History of Present Illness: 52 F here with fall and ? syncope. pt gives unusual history. she hadn't eaten anything in 3d [employer], not unusual for her--has eating disorder. yesterday she walked into mother's room to help her change her diaper after urinating, and mother noted pt was bleeding from small lac on bridge of the nose. pt has no recollection whatsoever of trauma to the face that day, or of falling or fainting. she also has no recollection of finding herself on floor or in an unexplained position/circumstances. there was no seizure activity, tongue/cheek biting or urinary/fecal incontinence. she then was trying to pull the diaper out from under mother and straining vigorously in doing so--felt sob and had to stop. then continued trying and mom fell on her and pt hit back (NOT FACE) on hard object. NO LH/PRESYNCOPE OR SYNCOPE AT THAT TIME. and no cp, palpitations. she recalls those events clearly. no positional LH sx's. on klonopin for anxiety long time. once when missed her dose she had withdrawal sz with tongue biting--o/w no sz history denies any non-rx drug use, etoh use. PMH: copd quit smoking 2011 depression, anxiety ankylosing spondylitis HNPs in spine atypical CP anorexia nervosa/bulimia GERD/hiatal hernia FH: father CAD, PAD. mother CAD - Past Medical History Gastrointestinal: Yes: Gastritis ...LMP: 10/20/16 ...: No Psych: Yes: Anxiety, Depression Musculoskeletal: Yes: Chronic low back pain, Other (S) Rheumatology: Yes: Other ( + gene [id number]) - Alcohol/Substance Use Hx Alcohol Use: No - Smoking History Smoking history: Never smoked Have you smoked in the past 12 months: No Aproximately how many cigarettes per day: 10 If you are a former smoker, when did you quit?: 2011 - Social History Usual Living Arrangement: With Parent ADL: Independent History of Recent Travel: No Home Medications - Allergies Allergies/Adverse Reactions: Allergies Allergy/AdvReac Type Severity Reaction Status Date / Time chlorpromazine HCl Allergy Verified 09/17/18 17:32 [From Thorazine] mushroom Allergy Verified 09/17/18 17:32 prochlorperazine edisylate AdvReac Intermediate jumping Verified 09/17/18 17:32 [From Compazine] out of my skin prochlorperazine maleate AdvReac Intermediate jumping Verified 09/17/18 17:32 [From Compazine] out of my skin - Home Medications Home Medications: Ambulatory Orders clonazePAM [Klonopin] 1 mg PO TID tablet 05/18/16 Zolpidem Tartrate [Ambien] 5 mg PO HS #5 tablet 02/16/17 Oxycodone HCl/Acetaminophen [Percocet 10-325 mg Tablet] 1 each PO QID PRN Venlafaxine HCl ER [Effexor Xr -] 150 mg PO DAILY 02/26/18 oxyCODONE SR [Oxycontin] 20 mg PO BID 02/26/18 Metoclopramide HCl [Reglan] 5 mg PO QID PRN #20 tablet MDD 4 09/17/18 traZODone HCL [Trazodone HCl] 200 mg PO HS 09/17/18 Family Disease History - Family Disease History Family Disease History: CA: Father (melanoma 91), Mother (breast ca bilateral 50 and 79), Sister (x 2 breast ca at age 40) Vital Signs: Vital Signs Temperature 97.5 F L 11/04/18 05:00 Pulse Rate 67 11/04/18 05:00 Respiratory Rate 18 11/04/18 05:00 Blood Pressure 111/83 11/04/18 05:00 O2 Sat by Pulse Oximetry (%) 97 11/04/18 04:51 - Other Data Labs, Other Data: CBC, BMP 11/03/18 18:16 11/03/18 18:16 INR, PTT INR 1.17 (0.82-1.09) 11/03/18 18:16 Troponin, BNP 11/03/18 11/04/18 18:50 00:00 Troponin I < 0.03 < 0.02 Troponin, BNP 11/03/18 11/04/18 18:50 00:00 Troponin I < 0.03 < 0.02 Laboratory Tests 11/03/18 11/03/18 11/03/18 18:16 18:16 18:50 WBC 3.8 L Hgb 13.4 Plt Count 244 Sodium 135 L Potassium 3.2 L Carbon Dioxide 29 BUN 15 Creatinine 0.7 AST 35 ALT 36 Troponin I < 0.03 Albumin 4.4 11/04/18 00:00 WBC Hgb Plt Count Sodium Potassium Carbon Dioxide BUN Creatinine AST ALT Troponin I < 0.02 Albumin Assessment/Plan ECG 11/03: NSR, normal axis/intervals. no pathological q waves. NSTWAs anterior leads--no significant change vs office ECG 04/2018 (QTc manually calculated = 440 -458 msec) CXR: hyperinflation, clear lungs/pleura Echo 05/05: nl LV/EF, no RWMA. nl RV. nl LA. mild MR/TR tele: NSR, no events unexplained lac to face, r/o syncope or sz: -pt with no recall whatsoever for how she sustained this injury (DEFINITELY WAS BEFORE SHE HELPED MOM AND FELL IN THE PROCESS). never found herself on the floors. no sz stigmata (once had benzo-withdrawal sz in past, but denies missed benzo doses recently). no orthostatic dizzy sx's on day of admit though felt weak, in setting of 3 days of no po intake (anorexia). -ECG with normal QT and not concerning for channelopathy--pt low risk for malignant arrhythmia with normal echo few months ago -tele benign here thus far--continue monitoring for remainder of today/overnight -ECG here similar to baseline from office 05/05 (has had fluctuating TWAs on prior ECGs, likely related to hypokalemia)., troponin neg x 2, no suspected ischemia sx's--no ischemia w/u indicated -f/u CT head (not reported yet) -VSs stable here--check orthostatic BPs -mild hypokalemia not likely contributory--repleted in ER COPD: -no sx's of a.e. depression, anxiety, eating disorder: -per PMD, psych ankylosing spondylitis, chronic back pain/disc dz, s/p fall with trauma: -pain mgmt per hospitalist
[2018-11-04 08:52] LABS: BASO % 0.8 % (0-2.0); EOS % 1.1 % (0-4.5); HEMATOCRIT 42.2 % (32.4-45.2); HEMOGLOBIN 13.4 GM/dl (10.7-15.3); LYMPH % 42.8 % (8-40); MCHC 31.8 g/dl (32.0-36.0); MEAN CELL VOLUME 94.3 fl (80-96); MEAN PLT VOLUME 8.5 fl (7.5-11.1); MONO % 14.8 % (3.8-10.2); NEUT % 40.5 % (42.8-82.8); PLATELET COUNT 254 K/MM3 (134-434); RBC 4.47 M/mm3 (3.60-5.2); RDW 12.6 % (11.6-15.6)
[2018-11-04 09:10] LABS: ANION GAP 12 MMOL/L (8-16); BLOOD UREA NITROGEN 22 mg/dl (7-18); CALCIUM 9.5 mg/dl (8.5-10); CHLORIDE 96 mmol/L (98-107); CO2 30 mmol/L (21-32); CREATININE 0.7 mg/dl (0.55-1.3); GLUCOSE,RANDOM 91 mg/dl (74-106); MAGNESIUM 2.2 mg/dL (1.8-2.4); PHOSPHOROUS 4.5 mg/dl (2.5-4.9); POTASSIUM 3.2 mmol/L (3.5-5.1); SODIUM 138 mmol/L (136-145)
[2018-11-04] MEDS ORDERED: oxyCODONE HCL 20 MG SUSTAINED ACTING TABLET PO SCH (10:00)
[2018-11-04] MEDS: oxyCODONE HCL 10 MG SUSTAINED ACTING TABLET PO SCH ×2 (10:01→21:21)
[2018-11-04] MEDS: clonazePAM 0.5 MG TABLET PO SCH ×3 (10:01→21:22)
--- NOTE | 2018-11-04 12:18 | PN ---
Physical Exam: SUBJECTIVE: Patient seen and examined, pt reports falling trying to get mother' s diaper off. Mother lost balance and fell onto patient. pt fell back, not face down. denies dizziness, lightheadedness prior to fall. pt with hx of anorexia, has not eaten in past 3 days. pt ambulating on unit, to nurses station asking for pain meds. OBJECTIVE: Vital Signs Period Temp Pulse Resp BP Sys/Garcia Pulse Ox Last 24 Hr 97.5 F-98.3 F 67-80 18-20 104-118/71-88 96-97 GENERAL: The patient is awake, alert, and fully oriented, in no acute distress. HEAD: Normal with no signs of trauma. EYES: PERRL, extraocular movements intact, sclera anicteric, conjunctiva clear. No ptosis. ENT: Ears normal, nares patent, oropharynx clear without exudates, moist mucous membranes. NECK: Trachea midline, full range of motion, supple. LUNGS: Breath sounds equal, clear to auscultation bilaterally, no wheezes, no crackles, no accessory muscle use. HEART: Regular rate and rhythm, S1, S2 without murmur, rub or gallop. ABDOMEN: Soft, nontender, nondistended, normoactive bowel sounds, no guarding, no rebound, no hepatosplenomegaly, no masses. EXTREMITIES: 2+ pulses, warm, well-perfused, no edema. NEUROLOGICAL: Cranial nerves II through XII grossly intact. Normal speech, gait not observed. PSYCH: Normal mood, normal affect. SKIN: mild bruising, with dry blood on bridge of nose Warm, dry, normal turgor, no rashes or lesions noted Laboratory Results - last 24 hr 11/03/18 11/03/18 11/03/18 18:16 18:16 18:16 WBC 3.8 L RBC 4.32 Hgb 13.4 Hct 40.2 MCV 93.1 MCH 31.1 MCHC 33.4 RDW 12.4 Plt Count 244 MPV 8.4 Absolute Neuts (auto) 1.6 Neutrophils % 43.2 Lymphocytes % 42.0 H Monocytes % 13.6 H Eosinophils % 0.5 Basophils % 0.7 PT with INR 13.1 H INR 1.17 PTT (Actin FS) 27.3 Sodium 135 L Potassium 3.2 L Chloride 94 L Carbon Dioxide 29 Anion Gap 12 BUN 15 Creatinine 0.7 Creat Clearance w eGFR > 60 Random Glucose 103 Calcium 9.7 Phosphorus Magnesium Total Bilirubin 1.0 AST 35 ALT 36 Alkaline Phosphatase 93 Creatine Kinase Troponin I Total Protein 6.9 Albumin 4.4 TSH 11/03/18 11/04/18 11/04/18 18:50 00:00 07:00 WBC 4.0 RBC 4.47 Hgb 13.4 Hct 42.2 MCV 94.3 MCH 30.0 MCHC 31.8 L RDW 12.6 Plt Count 254 MPV 8.5 Absolute Neuts (auto) 1.6 Neutrophils % 40.5 L Lymphocytes % 42.8 H Monocytes % 14.8 H Eosinophils % 1.1 Basophils % 0.8 PT with INR INR PTT (Actin FS) Sodium Potassium Chloride Carbon Dioxide Anion Gap BUN Creatinine Creat Clearance w eGFR Random Glucose Calcium Phosphorus Magnesium Total Bilirubin AST ALT Alkaline Phosphatase Creatine Kinase Troponin I < 0.03 < 0.02 Total Protein Albumin TSH 11/04/18 11/04/18 11/04/18 07:00 08:44 08:44 WBC RBC Hgb Hct MCV MCH MCHC RDW Plt Count MPV Absolute Neuts (auto) Neutrophils % Lymphocytes % Monocytes % Eosinophils % Basophils % PT with INR INR PTT (Actin FS) Sodium 138 Potassium 3.2 L Chloride 96 L Carbon Dioxide 30 Anion Gap 12 BUN 22 H Creatinine 0.7 Creat Clearance w eGFR > 60 Random Glucose 91 Calcium 9.5 Phosphorus 4.5 Magnesium 2.2 Total Bilirubin AST ALT Alkaline Phosphatase Creatine Kinase 76 Troponin I Cancelled < 0.03 Total Protein Albumin TSH 0.82 Active Medications Generic Name Dose Route Start Last Admin Trade Name Freq PRN Reason Stop Dose Admin Clonazepam 1 mg 11/04/18 10:00 11/04/18 10:01 Klonopin - PO 1 mg TID MISHA Administration Oxycodone HCl 20 mg 11/04/18 10:00 11/04/18 10:01 Oxycontin - PO 20 mg BID [facility] Administration Oxycodone/Acetaminophen 2 combo 11/04/18 09:54 Percocet 5/325 - PO QID PRN PAIN LEVEL 6-10 Trazodone HCl 200 mg 11/04/18 22:00 Desyrel - PO [facility] ASSESSMENT/PLAN: Gertrudis Cook 52 y/o woman with a PMHx of: Ankylosing Spondylosis, HBL 27+, Spinal Stenosis, Anxiety, Depression, Anorexia. admitted under observation for Admitting Diagnosis Syncope Chronic problems Spinal stenosis Depression/Anxiety Anorexia Anklyosing Spondylosis A/P #Syncope -unlikely -tele monitoring -Cardio note appreciated-monitor on tele x24hrs if stable can DC -trop negx1 -EKG NSR -Echo 05/05: nl LV/EF, no RWMA. nl RV. nl LA. mild MR/TR -CT Head, pending report #Hypokalemia-mild -repleted with PO #COPD-stable -not on inhalers #Depression/Anxiety -on klonapin, effexor #Spinal stenosis -on chronic pain meds Full Code Dispo Observation Visit type - Emergency Visit Emergency Visit: Yes ED Registration Date: 11/03/18 Care time: The patient presented to the Emergency Department on the above date and was hospitalized for further evaluation of their emergent condition. - New Patient This patient is new to me today: Yes Date on this admission: 11/04/18 - Critical Care Critical Care patient: No
--- NOTE | 2018-11-04 12:38 | EKG ---
Test Reason : Blood Pressure : / mmHG Vent. Rate : 081 BPM Atrial Rate : 081 BPM P-R Int : 104 ms QRS Dur : 088 ms QT Int : 400 ms P-R-T Axes : 070 074 062 degrees QTc Int : 464 ms SINUS RHYTHM WITH SHORT [place] NONSPECIFIC T WAVE ABNORMALITY PROLONGED QT ABNORMAL ECG WHEN COMPARED WITH ECG OF 07-MAY-2018 22:44, [place] INTERVAL HAS DECREASED T WAVE INVERSION MORE EVIDENT IN ANTERIOR LEADS Confirmed by MADDI ALVAREZ MD ([id number]) on 11/04/2018 12:38:43 PM Referred By: ISREAL Confirmed By:MADDI ALVAREZ MD
[2018-11-04] MEDS ORDERED: METOCLOPRAMIDE HCL 10 MG TABLET (FP) PO PRN (13:10)
[2018-11-04] MEDS ORDERED: clonazePAM 0.5 MG TABLET PO SCH (14:00)
[2018-11-04 16:37] LABS: PH,URINE 6.5 (4.5-8); URINE APPEARANCE HAZY; URINE BILIRUBIN NEGATIVE (NEGATIVE); URINE COLOR YELLOW; URINE GLUCOSE (UA) NEGATIVE (NEGATIVE); URINE KETONE NEGATIVE (NEGATIVE); URINE LEUK ESTERASE TRACE (NEGATIVE); URINE NITRITE NEGATIVE (NEGATIVE); URINE PROTEIN NEGATIVE (NEGATIVE); URINE UROBILINOGEN 0.2 (0.2-1.0)
[2018-11-04 16:42] LABS: EPI CELLS FEW /HPF; URINE RBC 0-2 /hpf (0-3)
[2018-11-04 16:43] LABS: URINE BACTERIA NONE SEEN /hpf (NEGATIVE)
[2018-11-04] MEDS ORDERED: traZODone HCL 50 MG TABLET (FP) PO SCH (22:00)
[2018-11-05] MEDS: clonazePAM 0.5 MG TABLET PO SCH ×2 (07:16→14:12)
[2018-11-05] MEDS: oxyCODONE HCL 10 MG SUSTAINED ACTING TABLET PO SCH (08:14)
[2018-11-05 08:55] LABS: HEMATOCRIT 35.3 % (32.4-45.2); HEMOGLOBIN 11.3 GM/dl (10.7-15.3); MCH 30.1 pg (25.7-33.7); MEAN CELL VOLUME 94.3 fl (80-96); MEAN PLT VOLUME 8.8 fl (7.5-11.1); PLATELET COUNT 193 K/MM3 (134-434); RBC 3.74 M/mm3 (3.60-5.2); RDW 12.5 % (11.6-15.6); WHITE BLOOD COUNT 2.9 K/mm3 (4.0-10.8)
[2018-11-05 09:32] LABS: ALBUMIN 3.5 g/dl (3.4-5.0); ALK PHOS 79 U/L (45-117); ANION GAP 6 MMOL/L (8-16); BILIRUBIN,TOTAL 0.5 mg/dl (0.2-1); BLOOD UREA NITROGEN 25 mg/dl (7-18); CALCIUM 8.7 mg/dl (8.5-10); CHLORIDE 102 mmol/L (98-107); CO2 27 mmol/L (21-32); CREATININE 0.6 mg/dl (0.55-1.3); GLUCOSE,RANDOM 107 mg/dl (74-106); POTASSIUM 3.4 mmol/L (3.5-5.1); SGOT/AST 21 U/L (15-37); SGPT/ALT 27 U/L (13-61); SODIUM 135 mmol/L (136-145); TOT PROT 5.5 g/dl (6.4-8.2)
[2018-11-05] MEDS ORDERED: SODIUM CHLORIDE 1,000 ML IV SCH (10:30)
--- NOTE | 2018-11-05 12:43 | DS ---
Physical Exam: SUBJECTIVE: Patient seen and examined OBJECTIVE: Vital Signs Period Temp Pulse Resp BP Sys/Garcia Pulse Ox Last 24 Hr 97.9 F-98.2 F 58-93 18-18 83-132/48-97 97-99 PHYSICAL EXAM GENERAL: The patient is awake, alert, and fully oriented, in no acute distress. HEAD: Normal with no signs of trauma. EYES: PERRL, extraocular movements intact, sclera anicteric, conjunctiva clear. ENT: Ears normal, nares patent, oropharynx clear without exudates, moist mucous membranes. NECK: Trachea midline, full range of motion, supple. LUNGS: Breath sounds equal, clear to auscultation bilaterally, no wheezes, no crackles, no accessory muscle use. HEART: Regular rate and rhythm, S1, S2 without murmur, rub or gallop. ABDOMEN: Soft, nontender, nondistended, normoactive bowel sounds, no guarding, no rebound, no hepatosplenomegaly, no masses. EXTREMITIES: 2+ pulses, warm, well-perfused, no edema. NEUROLOGICAL: Cranial nerves II through XII grossly intact. Normal speech, gait not observed. PSYCH: Normal mood, normal affect. SKIN: Warm, dry, normal turgor, no rashes or lesions noted. LABS Laboratory Results - last 24 hr 11/04/18 11/05/18 11/05/18 14:11 06:00 06:00 WBC 2.9 L RBC 3.74 Hgb 11.3 Hct 35.3 D MCV 94.3 MCH 30.1 MCHC 32.0 RDW 12.5 Plt Count 193 MPV 8.8 Sodium 135 L Potassium 3.4 L Chloride 102 Carbon Dioxide 27 Anion Gap 6 L BUN 25 H Creatinine 0.6 Creat Clearance w eGFR > 60 Random Glucose 107 H Calcium 8.7 Total Bilirubin 0.5 AST 21 ALT 27 Alkaline Phosphatase 79 D Total Protein 5.5 L Albumin 3.5 Urine Color Yellow Urine Appearance Hazy Urine pH 6.5 Ur Specific [place] 1.025 Urine Protein Negative Urine Glucose (UA) Negative Urine Ketones Negative Urine Blood Negative Urine Nitrite Negative Urine Bilirubin Negative Urine Urobilinogen 0.2 Ur Leukocyte Esterase Trace H Urine RBC 0-2 Urine WBC 2-5 Ur Epithelial Cells Few Urine Bacteria None seen HOSPITAL COURSE: Date of Admission:11/03/18 Date of Discharge: 11/05/18 Minutes to complete discharge: 35 Discharge Summary Reason For Visit: PROLONGED QT INTERBAL, SYNCOPE Current Active Problems Anxiety and depression (Acute) Cachexia (Acute) History of anorexia nervosa (Acute) Hypokalemia (Acute) Prolonged Q-T interval on ECG (Acute) Syncope (Acute) - Instructions - Home Medications Comprehensive Discharge Medication List: Ambulatory Orders clonazePAM [Klonopin] 1 mg PO TID tablet 05/18/16 Zolpidem Tartrate [Ambien] 5 mg PO HS #5 tablet 02/16/17 Oxycodone HCl/Acetaminophen [Percocet 10-325 mg Tablet] 1 each PO QID PRN Venlafaxine HCl ER [Effexor Xr -] 150 mg PO DAILY 02/26/18 oxyCODONE SR [Oxycontin] 20 mg PO BID 02/26/18 Metoclopramide HCl [Reglan] 5 mg PO QID PRN #20 tablet MDD 4 09/17/18 traZODone HCL [Trazodone HCl] 200 mg PO HS 09/17/18
[2018-11-05] MEDS ORDERED: POTASSIUM CHLORIDE TABS 20 MEQ TABLET.ER (FP) PO ONE (13:15)
--- NOTE | 2018-11-05 13:17 | PN ---
Progress Note, Physician Chief Complaint: fall, ? syncope History of Present Illness: feels dizzy when stands up--unable to shower today no syncope no sz movements, confusion no palpitations, cp, sob bp to 80s overnight--came up - Current Medication List Current Medications: Active Medications Clonazepam (Klonopin -) 1 mg PO TID [facility] Last Admin: 11/05/18 07:16 Dose: Not Given Sodium Chloride (Normal Saline -) 1,000 mls @ 125 mls/hr IV ASDIR [facility] Metoclopramide HCl (Reglan -) 5 mg PO QID PRN PRN Reason: NAUSEA Oxycodone HCl (Oxycontin -) 20 mg PO BID [facility] Last Admin: 11/05/18 08:14 Dose: 20 mg Oxycodone/Acetaminophen (Percocet 5/325 -) 2 combo PO QID PRN PRN Reason: PAIN LEVEL 6-10 Last Admin: 11/05/18 10:16 Dose: 2 combo Trazodone HCl (Desyrel -) 200 mg PO HS [facility] Last Admin: 11/04/18 21:21 Dose: 200 mg - Objective Vital Signs: Vital Signs Temperature 97.9 F 11/05/18 03:20 Pulse Rate 66 11/05/18 08:37 Respiratory Rate 18 11/05/18 08:33 Blood Pressure 112/74 11/05/18 08:37 O2 Sat by Pulse Oximetry (%) 99 11/05/18 08:33 Constitutional: Yes: Well Nourished, No Distress, Calm Cardiovascular: Yes: Regular Rate and Rhythm, S1, S2. No: Gallop, Murmur Respiratory: Yes: Regular, CTA Bilaterally (decr diffusely). No: Accessory Muscle Use, Rales, Wheezes Extremities: No: Cold Edema: No Neurological: Yes: Alert, Oriented. No: Seizure Psychiatric: No: Agitated Labs: CBC, BMP 11/05/18 06:00 11/05/18 06:00 INR, PTT INR 1.17 (0.82-1.09) 11/03/18 18:16 Assessment/Plan ECG 11/03: NSR, normal axis/intervals. no pathological q waves. NSTWAs anterior leads--no significant change vs office ECG 04/2018 (QTc manually calculated = 440 -458 msec) CXR: hyperinflation, clear lungs/pleura Echo 05/05: nl LV/EF, no RWMA. nl RV. nl LA. mild MR/TR Carotids: small, nonob plq CT head: no acute pathology tele: NSR, no events unexplained lac to face, r/o syncope or sz: -pt with no recall whatsoever for how she sustained this injury (DEFINITELY WAS BEFORE SHE HELPED MOM AND FELL IN THE PROCESS). never found herself on the floors. no sz stigmata (once had benzo-withdrawal sz in past, but denies missed benzo doses recently). no orthostatic dizzy sx's on day of admit though felt weak, in setting of 3 days of no po intake (anorexia). -ECG with normal QT and not concerning for channelopathy--pt low risk for malignant arrhythmia with normal echo few months ago -tele benign here thus far -ECG here similar to baseline from office 05/05 (has had fluctuating TWAs on prior ECGs, likely related to hypokalemia)., troponin neg x 2, no suspected ischemia sx's--no ischemia w/u indicated -CT head unrevealing -orthostatic BPs here normal, however resting BP down to 80s-90s overnight and she is dizzy upon standing -IVF started today. encouraged po intake including fluids AND SODIUM -check cortisol level (may be followed up as outpatient) -mild hypokalemia not likely contributory--repleted in ER-improving, repleted again today COPD: -no sx's of a.e. depression, anxiety, eating disorder: -per PMD, psych ankylosing spondylitis, chronic back pain/disc dz, s/p fall with trauma: -pain mgmt per hospitalist ONCE SHE CAN STAND AND AMBULATE WITHOUT SIGNIF DIZZINESS, AND RESTING SBP IS > 100, SHE IS OK FOR DC FROM CV P.O.V.
[2018-11-05 14:09] VITALS: TEMP 97.8
[2018-11-05] MEDS ORDERED: SODIUM CHLORIDE 1,000 ML IV STA (16:11)
[2018-11-05 16:52] VITALS: BP 99/65; PULSE 64
== END 2018-11-05 17:34 | disposition home or self-care (01) ==
LOC: FER 16:01 → FM/S 19:33
PROVIDERS: ADMIT Internal Medicine; ATTEND Nurse Practitioner Acute Care
PROC: 3E0333Z Introduction of Anti-inflammatory into Peripheral Vein, Percutaneous Approach (ICD-10-PCS; principal; 2018-11-03)
PROC: 3E0234Z Introduction of Serum, Toxoid and Vaccine into Muscle, Percutaneous Approach (ICD-10-PCS; 2018-11-03)
DX: I45.81 Long QT syndrome (principal); R55 Syncope and collapse; M45.9 Ankylosing spondylitis of unspecified sites in spine; M48.00 Spinal stenosis, site unspecified; F41.9 Anxiety disorder, unspecified; F32.9 Major depressive disorder, single episode, unspecified; K21.9 Gastro-esophageal reflux disease without esophagitis; E87.6 Hypokalemia; R64 Cachexia; J44.9 Chronic obstructive pulmonary disease, unspecified; Z86.59 Personal history of other mental and behavioral disorders; S00.31XA Abrasion of nose, initial encounter; W18.39XA Other fall on same level, initial encounter; Y93.F2 Activity, caregiving, lifting; Y92.003 Bedroom of unspecified non-institutional (private) residence as the place of occurrence of the external cause
CPT/HCPCS: 36415; 70450-TC; 70486-TC; 71045-TC-FY; 72125-TC; 80048; 80053; 81003; 81015; 82550; 83735; 84100; 84443; 84484; 85025; 85027; 85610; 85730; 90471; 90715; 93005; 93880-TC; 96374; 99283-25; G0378

== ENCOUNTER 2019-01-14 18:56 | Emergency (ER) | payer OTHER, BC ==
[2019-01-14 19:14] VITALS: BP 123/90; PULSE 84; TEMP 98.8; BMI 18.0
[2019-01-14] MEDS ORDERED: predniSONE 20 MG TABLET (UD) PO ONE (19:27)
[2019-01-14] MEDS ORDERED: KETOROLAC TROMETHAMINE 30 MG/1 ML VIAL IM ONE (19:27)
[2019-01-14] MEDS ORDERED: KETOROLAC TROMETHAMINE 30 MG/1 ML VIAL ONE (19:39)
[2019-01-14] MEDS ORDERED: predniSONE 20 MG TABLET (UD) ONE (19:39)
--- NOTE | 2019-01-14 19:53 | PDOC ---
Documentation entered by Selene Burdick SCRIBE, acting as scribe for Marianela Vela MD. Marianela Vela MD: This documentation has been prepared by the Gennaro coates Xhesika, SCRIBE, under my direction and personally reviewed by me in its entirety. I confirm that the documentation accurately reflects all work, treatment, procedures, and medical decision making performed by me. History of Present Illness - General Chief Complaint: Pain, Acute Stated Complaint: BACK PAIN History Source: Patient Exam Limitations: No Limitations - History of Present Illness Initial Comments: 01/14/19 19:27 The patient is a 53 year old female, with a significant past medical history of ankylosing spondylosis, Hbl 27+, spinal stenosis, and depression who presents to the emergency department with back pain. The patient states her father who has Parkinson's disease fell this afternoon, she went to lift him up and hurt her back. The patient states she has a history of back pain and usually takes percocets and oxycontin, however, she did not take her medication today. The patient denies chest pain, shortness of breath, headache or dizziness. The patient denies fever, chills, nausea, vomit, diarrhea or constipation. The patient denies dysuria, frequency, urgency or hematuria. PAST MEDICAL HISTORY: no significant history PAST SURGICAL HISTORY: no significant history FAMILY HISTORY: no pertinent history SOCIAL HISTORY: Pt lives with family and is employed. MEDICATIONS: reviewed ALLERGIES: As per nursing notes Assessment and plan: This is a 53-year-old female who comes in complaining of acute laceration of her chronic low back pain. Patient said she went to lift her up with Parkinson's disease after he fell and she hurt her back. Patient said this is the same pain she has had for many years. Patient did not take her usual pain medications which include OxyContin and Percocet because she was convinced they may not work so she came in for evaluation. X-rays were obtained that were negative for any acute pathology Patient was given a shot of Toradol and told to go home and take her OxyContin and Percocet Patient discharged home 01/14/19 19:55 Past History - Past Medical History Allergies/Adverse Reactions: Allergies Allergy/AdvReac Type Severity Reaction Status Date / Time chlorpromazine HCl Allergy Verified 01/14/19 19:10 [From Thorazine] mushroom Allergy Verified 01/14/19 19:10 prochlorperazine edisylate AdvReac Intermediate jumping Verified 01/14/19 19:10 [From Compazine] out of my skin prochlorperazine maleate AdvReac Intermediate jumping Verified 01/14/19 19:10 [From Compazine] out of my skin Home Medications: Ambulatory Orders clonazePAM [KlonoPIN] 1 mg PO TID tablet 05/18/16 Oxycodone HCl/Acetaminophen [Percocet 10-325 mg Tablet] 1 each PO QID PRN Venlafaxine HCl ER [Effexor Xr -] 150 mg PO DAILY 02/26/18 oxyCODONE SR [Oxycontin] 20 mg PO BID 02/26/18 Metoclopramide HCl [Reglan] 5 mg PO QID PRN #20 tablet MDD 4 09/17/18 traZODone HCL [Trazodone HCl] 100 mg PO HS 09/17/18 Lurasidone HCl [Latuda] 20 mg PO DAILY 01/14/19 Anemia: Yes (TREATED WITH IRON IN THE PAST) Asthma: No Cancer: No Cardiac Disorders: No CVA: No COPD: No CHF: No Dementia: No Diabetes: No GI Disorders: Yes (REFLUX) Disorders: No HTN: No Hypercholesterolemia: No Liver Disease: No Psychiatric Problems: Yes (depression, anxiety) Seizures: No Thyroid Disease: No Other medical history: ANOREXIA - Surgical History Abdominal Surgery: No Appendectomy: No Cardiac Surgery: No Cholecystectomy: No Lung Surgery: No Neurologic Surgery: No Orthopedic Surgery: No - Suicide/Smoking/Psychosocial Hx Smoking Status: No Smoking History: Never smoked Have you smoked in the past 12 months: No Number of Cigarettes Smoked Daily: 10 If you are a former smoker, when did you quit?: 2011 'Breaking Loose' booklet given: 10/17/16 Hx Alcohol Use: No Drug/Substance Use Hx: No Substance Use Type: Opiates, Prescribed Hx Substance Use Treatment: No Review of Systems - Review of Systems Able to Perform ROS?: Yes Comments:: 01/14/19 19:27 General: No fevers or chills, no weakness, no weight loss HEENT: No change in vision. No sore throat,. No ear pain CardioVascular: No chest pain or shortness of breath Respiratory:No cough, or wheezing. Gastrointestinal: no nausea, vomiting, diarrhea or constipation, No rectal bleeding Genitourinary: No dysuria, hematuria, or frequency Musculoskeletal: (+) back pain. No joint or muscle swelling Neurologic: No headache, vertigo, dizziness or loss of consciousness Psychiatric: nor depression Skin: No rashes or easy bruising Endocrine: no increased thirst or abnormal weight change Allergic: no skin or latex allergy All other systems reviewed and normal *Physical Exam - Vital Signs Last Vital Signs Temp Pulse Resp BP Pulse Ox 98.8 F 84 18 123/90 100 01/14/19 18:56 01/14/19 18:56 01/14/19 18:56 01/14/19 18:56 01/14/19 18:56 - Physical Exam Comments: 01/14/19 19:27 GENERAL: The patient is awake, alert, and fully oriented, in no acute distress. HEAD: Normal with no signs of trauma. EYES: Pupils equal, round and reactive to light, extraocular movements intact, sclera anicteric, conjunctiva clear. BACK: (+) Tenderness on palpation of upper lumbar spine. (+) No Perispinal spasm or tenderness. EXTREMITIES: Normal range of motion, no edema. NEUROLOGICAL: Normal speech, normal gait. PSYCH: Normal mood, normal affect. SKIN: Warm, Dry, normal turgor, no rashes or lesions noted. ED Treatment Course - RADIOLOGY Radiology Studies Ordered: Category Date Time Status SPINE-LUMBAR ONLY [RAD] Stat Radiology 01/14/19 19:37 Ordered - Medications Given in the ED: ED Medications Discontinued Medications Generic Name Dose Route Start Last Admin Trade Name Freq PRN Reason Stop Dose Admin Ketorolac Tromethamine 30 mg 01/14/19 19:27 01/14/19 19:44 Toradol Injection - IM 01/14/19 19:28 30 mg ONCE ONE Administration Prednisone 40 mg 01/14/19 19:27 01/14/19 19:44 Deltasone - PO 01/14/19 19:28 40 mg ONCE ONE Administration *DC/Admit/Observation/Transfer Diagnosis at time of Disposition: Acute exacerbation of chronic low back pain - Discharge Dispostion Disposition: HOME Condition at time of disposition: Stable - Referrals Referrals: Eriberto Rodriguez MD [Primary Care Provider] - Joshua Arvizu DO [Staff Physician] - - Patient Instructions Additional Instructions: Go home and take your OxyContin and Percocet as prescribed. Your CAT scan shows some degenerative disc disease in the area of your greatest discomfort. Including some disc bulging that is most likely the source of your pain. It is important that you follow-up with an orthopedist this week I have referred to 2 and orthopedist that you can use if you do not already have an orthopedist In addition to the Percocet and OxyContin you take for the pain you should also take an anti-inflammatory such as ibuprofen or Aleve. Return to the emergency department immediately with ANY new, persistent or worsening symptoms. Continue any medications as previously prescribed by your physician. You should follow up with your primary doctor as soon as possible regarding today's emergency department visit. . Please make sure your doctor reviews the results of your emergency evaluation. Thank you for coming to the Emergency Department today for your care. It was a pleasure to see you today. Please note that your evaluation is INCOMPLETE until you follow-up with your doctor. - Post Discharge Activity
== END 2019-01-14 22:22 | disposition home or self-care (01) ==
LOC: FER 18:56
PROC: 3E0233Z Introduction of Anti-inflammatory into Muscle, Percutaneous Approach (ICD-10-PCS; principal; 2019-01-14)
DX: M54.5 Low back pain (principal); G89.29 Other chronic pain
CPT/HCPCS: 72100-TC-FY; 72131-TC; 96372; 99282-25

== ENCOUNTER 2019-03-13 14:35 | Emergency (ER) | payer OTHER, BC ==
[2019-03-13 14:40] VITALS: BMI 18.7
[2019-03-13 14:47] VITALS: BP 113/80; PULSE 85; TEMP 99
--- NOTE | 2019-03-13 15:09 | EKG ---
Test Reason : Blood Pressure : / mmHG Vent. Rate : 084 BPM Atrial Rate : 084 BPM P-R Int : 138 ms QRS Dur : 088 ms QT Int : 494 ms P-R-T Axes : 076 075 075 degrees QTc Int : 583 ms NORMAL SINUS RHYTHM RIGHT ATRIAL ENLARGEMENT anterio latreral t wave abnormalities r/o ioschemia PROLONGED QT ABNORMAL ECG Confirmed by BRICE WILKINSON MD ([id number]) on 03/13/2019 3:09:24 PM Referred By: MD PATEL Confirmed By:BRICE WILKINSON MD
[2019-03-13 15:25] LABS: ALBUMIN 4.2 g/dl (3.4-5.0); BILIRUBIN,TOTAL 0.6 mg/dl (0.2-1); CALCIUM 9.3 mg/dl (8.5-10); CREATININE 0.8 mg/dl (0.55-1.3); TOT PROT 7.2 g/dl (6.4-8.2)
[2019-03-13] MEDS ORDERED: ONDANSETRON *ODT* 4 MG TABLET SL ONE (15:32)
[2019-03-13] MEDS ORDERED: ONDANSETRON *ODT* 4 MG TABLET ONE (15:37)
[2019-03-13] MEDS ORDERED: POTASSIUM CHLORIDE TABS 20 MEQ TABLET.ER (FP) PO ONE (15:43)
--- NOTE | 2019-03-13 16:35 | PDOC ---
Documentation entered by Tejal Hwang SCRIBE, acting as scribe for Abhilash Hicks MD. Abhilash Rowley MD: This documentation has been prepared by the Eri coates Sammi, SCRIBE, under my direction and personally reviewed by me in its entirety. I confirm that the documentation accurately reflects all work, treatment, procedures, and medical decision making performed by me. History of Present Illness - General Chief Complaint: Revisit, Lab Variance Stated Complaint: LOW K - History of Present Illness Initial Comments: 03/13/19 15:50 The patient is a 53 year old female, with a significant PMH of anorexia, low back angliosis spondylosis (on oxycodone), herniated disks, who presents to the emergency department from PCP for evaluation of low potassium of 2.7 and potassium supplementation. The patient reports she had an ultrasound endoscopy at [facility] last week and has felt weak and nauseous since and has experienced several episodes of vomiting. She was evaluated by her PCP this morning where labs were drawn and showed a potassium level of 2.7. The patient reports a history of low potassium that required IV treatment. Of note, the patient is currently enrolled in a weight gain program for anorexia. She began with 8 weeks of inpatient treatment and is currently evaluated by outpatient. PCP: Dr. Rodriguez Past History - Past Medical History Allergies/Adverse Reactions: Allergies Allergy/AdvReac Type Severity Reaction Status Date / Time chlorpromazine HCl Allergy Verified 01/14/19 19:10 [From Thorazine] mushroom Allergy Verified 01/14/19 19:10 prochlorperazine edisylate AdvReac Intermediate jumping Verified 01/14/19 19:10 [From Compazine] out of my skin prochlorperazine maleate AdvReac Intermediate jumping Verified 01/14/19 19:10 [From Compazine] out of my skin Home Medications: Ambulatory Orders clonazePAM [KlonoPIN] 1 mg PO TID tablet 05/18/16 Oxycodone HCl/Acetaminophen [Percocet 10-325 mg Tablet] 1 each PO QID PRN Venlafaxine HCl ER [Effexor Xr -] 150 mg PO DAILY 02/26/18 oxyCODONE SR [Oxycontin] 20 mg PO BID 02/26/18 traZODone HCL [Trazodone HCl] 100 mg PO HS 09/17/18 Lurasidone HCl [Latuda] 20 mg PO DAILY 01/14/19 Ondansetron [Zofran Odt -] 4 mg SL TID PRN #20 od.tablet 03/13/19 Potassium Chloride [K-Dur -] 20 meq PO BID #20 tablet.er 03/13/19 Anemia: Yes (TREATED WITH IRON IN THE PAST) Asthma: No Cancer: No Cardiac Disorders: No CVA: No COPD: No CHF: No Dementia: No Diabetes: No GI Disorders: Yes (REFLUX) Disorders: No HTN: No Hypercholesterolemia: No Liver Disease: No Psychiatric Problems: Yes (depression, anxiety) Seizures: No Thyroid Disease: No - Surgical History Abdominal Surgery: No Appendectomy: No Cardiac Surgery: No Cholecystectomy: No Lung Surgery: No Neurologic Surgery: No Orthopedic Surgery: No - Suicide/Smoking/Psychosocial Hx Smoking Status: No Smoking History: Never smoked Have you smoked in the past 12 months: No Number of Cigarettes Smoked Daily: 10 If you are a former smoker, when did you quit?: 2011 'Breaking Loose' booklet given: 10/17/16 Hx Alcohol Use: No Drug/Substance Use Hx: No Substance Use Type: Opiates, Prescribed Hx Substance Use Treatment: No Review of Systems - Review of Systems Comments:: 03/13/19 15:51 GENERAL/CONSTITUTIONAL: (+)Weakness. No fever or chills. HEAD, EYES, EARS, NOSE AND THROAT: No change in vision. No ear pain or discharge. No sore throat. CARDIOVASCULAR: No chest pain or shortness of breath. RESPIRATORY: No cough, wheezing, or hemoptysis. GASTROINTESTINAL: (+)Nausea. (+)vomiting. No diarrhea or constipation. GENITOURINARY: No dysuria, frequency, or change in urination. MUSCULOSKELETAL: No joint or muscle swelling or pain. No neck or back pain. SKIN: No rash NEUROLOGIC: No headache, vertigo, loss of consciousness, or change in strength/ sensation. ENDOCRINE: (+)weight fluctuations. No increased thirst. HEMATOLOGIC/LYMPHATIC: No anemia, easy bleeding, or history of blood clots. ALLERGIC/IMMUNOLOGIC: No hives or skin allergy. *Physical Exam - Vital Signs Last Vital Signs Temp Pulse Resp BP Pulse Ox 99 F 85 18 113/80 100 03/13/19 14:35 03/13/19 14:35 03/13/19 14:35 03/13/19 14:35 03/13/19 14:35 - Physical Exam Comments: 03/13/19 16:26 GENERAL: Somewhat anxious female, alert and oriented, in no acute distress HEAD: No signs of trauma EYES: PERRLA, EOMI, sclera anicteric, conjunctiva clear ENT: Auricles normal inspection, hearing grossly normal, nares patent, oropharynx clear without exudates. Moist mucosa NECK: Normal ROM, supple, no lymphadenopathy, JVD, or masses LUNGS: Breath sounds equal, clear to auscultation bilaterally. No wheezes, and no crackles HEART: Regular rate and rhythm, normal S1 and S2, no murmurs, rubs or gallops ABDOMEN: (+)Mildly distended, bowel sounds normal, soft without mass tenderness or organomegaly, no CVAT EXTREMITIES: Normal range of motion, no edema. No clubbing or cyanosis. No cords, erythema, or tenderness NEUROLOGICAL: cranial nerves intact, no focal sensory or motor deficits, strength full and symmetric SKIN: Warm, Dry, normal turgor, no rashes or lesions noted. ED Treatment Course - LABORATORY CBC & Chemistry Diagram: 03/13/19 14:46 - ADDITIONAL ORDERS Additional order review: Laboratory Results 03/13/19 14:46 Sodium 135 L Potassium 3.0 L Chloride 89 L Carbon Dioxide 32 Anion Gap 14 BUN 29.0 H Creatinine 0.8 Est GFR (CKD-EPI)AfAm 96.87 Est GFR (CKD-EPI)NonAf 83.58 Random Glucose 130 H Calcium 9.3 Total Bilirubin 0.6 AST 34 ALT 35 Alkaline Phosphatase 96 Total Protein 7.2 Albumin 4.2 - Medications Given in the ED: ED Medications Discontinued Medications Generic Name Dose Route Start Last Admin Trade Name Freq PRN Reason Stop Dose Admin Ondansetron HCl 4 mg 03/13/19 15:32 03/13/19 15:39 Zofran Odt - SL 03/13/19 15:33 4 mg ONCE ONE Administration *DC/Admit/Observation/Transfer Diagnosis at time of Disposition: Hypokalemia - Discharge Dispostion Disposition: HOME Condition at time of disposition: Stable Decision to Admit order: No - Prescriptions Prescriptions: Ondansetron [Zofran Odt -] 4 mg SL TID PRN #20 od.tablet PRN Reason: Nausea And/Or Vomiting Potassium Chloride [K-Dur -] 20 meq PO BID #20 tablet.er - Referrals Referrals: Eriberto Rodriguez MD [Primary Care Provider] - 2 Days - Patient Instructions Printed Discharge Instructions: DI for Hypokalemia - Post Discharge Activity
== END 2019-03-13 16:26 | disposition home or self-care (01) ==
LOC: FER 14:35
DX: E87.6 Hypokalemia (principal); Z87.891 Personal history of nicotine dependence; F41.8 Other specified anxiety disorders; K21.9 Gastro-esophageal reflux disease without esophagitis
CPT/HCPCS: 36415; 80053; 93005; 99281-25; Q0162

== ENCOUNTER 2019-05-06 20:31 | Observation (INO) | payer OTHER, BC ==
--- NOTE | 2019-05-06 20:43 | PDOC ---
History of Present Illness - General Chief Complaint: Pain, Acute Stated Complaint: CHEST PAIN/SYNCOPE Time Seen by Provider: 05/06/19 20:39 History Source: Patient Exam Limitations: No Limitations - History of Present Illness Initial Comments: 53 yo F pmh ankylosing spondolylitis presenting with a few hours of constant crampy tight left sided chest pain with radiation to the left arm. Two hours into the episode, pt states she felt very dizzy and passed out in the bathroom; (+)LOC, (+) head strike. Denies SOB. She states this is in the setting of a few days of nausea and vomiting with poor PO tolerance. Pt states her left hand fingertips feels mildly numb but no other numbness or tingling. Has been unable to take her meds creating difficulty sleeping. Past History - Past Medical History Allergies/Adverse Reactions: Allergies Allergy/AdvReac Type Severity Reaction Status Date / Time prochlorperazine edisylate Allergy Intermediate jumping Verified 05/06/19 20:34 [From Compazine] out of my skin prochlorperazine maleate Allergy Intermediate jumping Verified 05/06/19 20:34 [From Compazine] out of my skin chlorpromazine HCl Allergy Verified 01/14/19 19:10 [From Thorazine] mushroom Allergy Verified 01/14/19 19:10 Home Medications: Ambulatory Orders clonazePAM [KlonoPIN] 1 mg PO TID tablet 05/18/16 Oxycodone HCl/Acetaminophen [Percocet 10-325 mg Tablet] 1 each PO QID PRN Venlafaxine HCl ER [Effexor Xr -] 150 mg PO DAILY 02/26/18 oxyCODONE SR [Oxycontin] 20 mg PO BID 02/26/18 traZODone HCL [Trazodone HCl] 200 mg PO HS 09/17/18 Lurasidone HCl [Latuda] 20 mg PO DAILY 01/14/19 Zolpidem Tartrate [Ambien] 10 mg PO HS 05/06/19 Anemia: Yes (TREATED WITH IRON IN THE PAST) Asthma: No Cancer: No Cardiac Disorders: No CVA: No COPD: No CHF: No Dementia: No Diabetes: No GI Disorders: Yes (REFLUX) Disorders: No HTN: No Hypercholesterolemia: No Liver Disease: No Psychiatric Problems: Yes (depression, anxiety) Seizures: No Thyroid Disease: No - Surgical History Abdominal Surgery: No Appendectomy: No Cardiac Surgery: No Cholecystectomy: No Lung Surgery: No Neurologic Surgery: No Orthopedic Surgery: No - Suicide/Smoking/Psychosocial Hx Smoking Status: No Smoking History: Never smoked Have you smoked in the past 12 months: No Number of Cigarettes Smoked Daily: 10 If you are a former smoker, when did you quit?: 2011 'Breaking Loose' booklet given: 10/17/16 Hx Alcohol Use: No Drug/Substance Use Hx: No Substance Use Type: Opiates, Prescribed Hx Substance Use Treatment: No Review of Systems - Review of Systems Able to Perform ROS?: Yes Comments:: Denies abdominal pain, diarrhea, changes in vision/hearing. Is the patient limited Slovak proficient: No *Physical Exam - Physical Exam Comments: GEN: Anxious, AAOx3. HEENT: NC/AT - no deformities or hematomas noted. EOMI, PERRLA, CN II-XII intact. BACK: No c-spine tenderness. There is T1 TTP. CV: S1/S2, RRR, no m/r/g LUNG: CTAB, no wheezes, crackles, rales, rhonchi. GI: soft, ndnt, +BS, no guarding, no rebound. EXTREMITIES: 2+ distal pulses. No LE edema. No obvious deformities of all extremities. ED Treatment Course - LABORATORY CBC & Chemistry Diagram: 05/07/19 07:46 05/07/19 07:46 Medical Decision Making - Medical Decision Making 05/06/19 21:08 53 yo F presenting with constant crampy chest pain w/ LOC + Head strike. Also had n/v and poor po intake for a few days - unable to take home meds creating difficulty sleeping. chest pain - CBC, CMP, cardiac - EKG, CXR, XR C and T spine - Zofran - obs 05/06/19 21:45 initial trop neg. EKG today showing T wave inversions in V1-V3 which are unchanged from previous EKG. *DC/Admit/Observation/Transfer Diagnosis at time of Disposition: Syncope Qualifiers: Syncope type: unspecified Qualified Code(s): R55 - Syncope and collapse Chest pain Qualifiers: Chest pain type: unspecified Qualified Code(s): R07.9 - Chest pain, unspecified - Discharge Dispostion Condition at time of disposition: Stable - Referrals - Patient Instructions - Post Discharge Activity
[2019-05-06 20:59] LABS: BASO % 0.4 % (0-2.0); EOS % 0.4 % (0-4.5); HEMATOCRIT 39.6 % (32.4-45.2); HEMOGLOBIN 13.1 GM/dl (10.7-15.3); MCH 30.5 pg (25.7-33.7); MEAN CELL VOLUME 92.7 fl (80-96); MEAN PLT VOLUME 8.4 fl (7.5-11.1); MONO % 12.4 % (3.8-10.2); NEUT % 60.8 % (42.8-82.8); PLATELET COUNT 243 K/MM3 (134-434); RBC 4.27 M/mm3 (3.60-5.2); RDW 13.5 % (11.6-15.6); WHITE BLOOD COUNT 5.9 K/mm3 (4.0-10.8)
[2019-05-06] MEDS ORDERED: ONDANSETRON 4 MG/2 ML VIAL IVPB ONE (21:06)
[2019-05-06 21:10] VITALS: BMI 18.8
[2019-05-06 21:10] LABS: ALBUMIN 4.1 g/dl (3.4-5.0); BILIRUBIN,TOTAL 0.8 mg/dl (0.2-1); CALCIUM 9.2 mg/dl (8.5-10); CREATININE 0.7 mg/dl (0.55-1.3); TOT PROT 6.7 g/dl (6.4-8.2)
[2019-05-06] MEDS ORDERED: SODIUM CHLORIDE 1,000 ML IV ONE (21:10)
[2019-05-06] MEDS ORDERED: ONDANSETRON 4 MG/2 ML VIAL ONE (21:26)
--- NOTE | 2019-05-06 22:21 | PDOC ---
Documentation entered by Flaquita Mejia SCRIBE, acting as scribe for Marianela Vela MD. Marianela Vela MD: This documentation has been prepared by the Roberto coates Lincy, SCRIBE, under my direction and personally reviewed by me in its entirety. I confirm that the documentation accurately reflects all work , treatment, procedures, and medical decision making performed by me. Attending Attestation - Resident Resident Name: AaronPhill - ED Attending Attestation I have performed the following: I have examined & evaluated the patient, The case was reviewed & discussed with the resident, I agree w/resident's findings & plan, Exceptions are as noted - HPI HPI: 05/06/19 21:20 The patient is a 53-year-old female who presents to the emergency department with chest pain and s/p a syncopal episode. The patient presents with a few hours of constant, left-sided chest pain, thats described as crampy and tight, with pain radiating down the left arm. The patient reports about 2 hours into chest pain presentation she went to the bathroom when she had an acute onset of dizziness followed by an unwitnessed fall with LOC and head injury. The patient reports an additional complaint of nausea, vomiting, and diarrhea. Last vomiting episode was last night and states shes been having episodes of diarrhea throughout today. PAST MEDICAL HISTORY: Ankylosing Spondylitis PAST SURGICAL HISTORY: no significant history FAMILY HISTORY: no pertinent history SOCIAL HISTORY: Pt lives with family. MEDICATIONS: reviewed ALLERGIES: As per nursing notes - Physicial Exam PE: 05/06/19 21:21 General: Well-nourished well-developed individual, no acute distress HEENT: Throat: Normal, tonsils normal, no erythema or exudate Neck: Supple, no meningeal signs, no lymphadenopathy Eyes::Pupils equal reactive and round, extraocular motion intact Chest: Nontender to palpation Cardiac: S1-S2 normal, regular rate and rhythm, no murmurs rubs or gallops Respiratory: Lungs clear to auscultation bilateral Abdomen: Soft, nondistended, normal bowel sounds, nontender to palpation diffusely Extremities: Warm, dry, no cyanosis, clubbing, or edema Skin: No rashes Neuro: Alert and oriented x3, nonfocal exam, grossly intact, normal gait Psych: Normal mood and affect - Medical Decision Making 05/06/19 21:[address] Gamboa at 06-May-2019 20:38, which shows a Vent. rate of 67 bpm , AK interval 108 ms, QRS duration 88 ms. Sinus rhythm with short AK ST & T wave abnormality 05/06/19 22:19 Assessment and plan: This is a 53-year-old female who had a syncopal event and also has some chest pain. Patient will be admitted Patient's x-rays of cervical spine and thoracic spine and chest were all negative for any acute pathology as reviewed by me. Discussed admission with hospitalist patient accepted to the hospitalist service
[2019-05-06] MEDS ORDERED: ACETAMINOPHEN 500 MG TABLET (FP) PO ONE (22:56)
[2019-05-06] MEDS ORDERED: ACETAMINOPHEN 500 MG TABLET (FP) ONE (22:57)
--- NOTE | 2019-05-06 23:29 | HP ---
CHIEF COMPLAINT: Left-sided chest pain PCP: Dr. Rodriguez HISTORY OF PRESENT ILLNESS: 53 year-old female with a PMH significant for ankylosing spondylitis, polysubstance abuse, eating disorder, anemia, GERD, and depression/anxiety. Presented to the Ed for evaluation of chest pain and an unwitnessed syncopal episode. Patient reported a few hours of constant, left-sided chest pain, described as crampy and tight, with pain radiating down the left arm. About 2 hours into the chest pain, she went to the bathroom when she had an acute onset of dizziness followed by an unwitnessed fall with LOC and head injury. This episode was accompanied by nausea, vomiting, and diarrhea. Last vomiting episode was last night and states shes been having episodes of diarrhea throughout the day today. 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 Smoking: quit 2011 Alcohol: last drink 4 years ago Drugs: no Family History: Mother alive 91 CAD s/p SC s/p CABG, OCD/depression; father alive 80s CAD s/p SC s/p CABG, PAD, Parkinsons; two brothers a&w; sister with breast cancer and chemo induced heart failure Allergies prochlorperazine edisylate [From Compazine] Allergy (Intermediate, Verified 20:34) jumping out of my skin prochlorperazine maleate [From Compazine] Allergy (Intermediate, Verified 20:34) jumping out of my skin chlorpromazine HCl [From Thorazine] Allergy (Verified 01/14/19 19:10) mushroom Allergy (Verified 01/14/19 19:10) HOME MEDICATIONS: Home Medications Medication Instructions Recorded clonazePAM [KlonoPIN] 1 mg PO TID tablet 05/18/16 Oxycodone HCl/Acetaminophen 1 each PO QID PRN 02/26/18 [Percocet 10-325 mg Tablet] Venlafaxine HCl ER [Effexor Xr -] 150 mg PO DAILY 02/26/18 oxyCODONE SR [Oxycontin] 20 mg PO BID 02/26/18 traZODone HCL [Trazodone HCl] 200 mg PO HS 09/17/18 Lurasidone HCl [Latuda] 20 mg PO DAILY 01/14/19 Zolpidem Tartrate [Ambien] 10 mg PO HS 05/06/19 REVIEW OF SYSTEMS CONSTITUTIONAL: Absent: fever, chills, diaphoresis, generalized weakness, malaise, loss of appetite, weight change HEENT: Absent: rhinorrhea, nasal congestion, throat pain, throat swelling, difficulty swallowing, mouth swelling, ear pain, eye pain, visual changes CARDIOVASCULAR: +chest pain radiating left arm, palpitations; syncope Absent: irregular heart rate, lightheadedness, peripheral edema RESPIRATORY: Absent: cough, shortness of breath, dyspnea with exertion, orthopnea, wheezing, stridor, hemoptysis GASTROINTESTINAL: Absent: abdominal pain, abdominal distension, nausea, vomiting, diarrhea, constipation, melena, hematochezia GENITOURINARY: Absent: dysuria, frequency, urgency, hesitancy, hematuria, flank pain, genital pain MUSCULOSKELETAL: Absent: myalgia, arthralgia, joint swelling, back pain, neck pain SKIN: Absent: rash, itching, pallor HEMATOLOGIC/IMMUNOLOGIC: Absent: easy bleeding, easy bruising, lymphadenopathy, frequent infections ENDOCRINE: Absent: unexplained weight gain, unexplained weight loss, heat intolerance, cold intolerance NEUROLOGIC: Absent: headache, focal weakness or paresthesias, dizziness, unsteady gait, seizure, mental status changes, bladder or bowel incontinence PSYCHIATRIC: +Schizoaffective disorder, eating disorder (laxatives, exercise) Absent: anxiety, depression, suicidal or homicidal ideation, hallucinations. PHYSICAL EXAMINATION Vital Signs - 24 hr 05/06/19 05/06/19 20:36 22:43 Temperature 98.4 F Pulse Rate 68 Pulse Rate [ 63 Right Radial] Respiratory 18 Rate Blood Pressure 120/94 Blood Pressure 126/88 [Left Arm] O2 Sat by Pulse 100 100 Oximetry (%) GENERAL: Awake, alert, and fully oriented, in no acute distress. HEAD: Normal with no signs of trauma. EYES: Pupils equal, round and reactive to light, extraocular movements intact, sclera anicteric, conjunctiva clear. No lid lag. EARS, NOSE, THROAT: Ears normal, nares patent, oropharynx clear without exudates. Moist mucous membranes. NECK: Normal range of motion, supple without lymphadenopathy, JVD, or masses. LUNGS: Breath sounds equal, clear to auscultation bilaterally. No wheezes, and no crackles. No accessory muscle use. HEART: Regular rate and rhythm, normal S1 and S2 without murmur, rub or gallop. ABDOMEN: Soft, nontender, not distended, normoactive bowel sounds, no guarding, no rebound, no masses. No hepatomegaly or splenomegaly. MUSCULOSKELETAL: Normal range of motion at all joints. No bony deformities or tenderness. No CVA tenderness. UPPER EXTREMITIES: 2+ pulses, warm, well-perfused. No cyanosis. No clubbing. No peripheral edema. LOWER EXTREMITIES: 2+ pulses, warm, well-perfused. No calf tenderness. No peripheral edema. NEUROLOGICAL: Cranial nerves II-XII intact. Normal speech. Normal gait. PSYCHIATRIC: Cooperative. Good eye contact. Appropriate mood and affect. SKIN: Warm, dry, normal turgor, no rashes or lesions noted, normal capillary refill. Laboratory Results - last 24 hr 05/06/19 05/06/19 05/06/19 20:50 20:50 20:50 WBC 5.9 RBC 4.27 Hgb 13.1 Hct 39.6 MCV 92.7 MCH 30.5 MCHC 33.0 RDW 13.5 Plt Count 243 MPV 8.4 Absolute Neuts (auto) 3.7 Neutrophils % 60.8 Lymphocytes % 26.0 Monocytes % 12.4 H Eosinophils % 0.4 Basophils % 0.4 Sodium 140 Potassium 3.0 L Chloride 102 Carbon Dioxide 29 Anion Gap 9 BUN 10.0 Creatinine 0.7 Est GFR (CKD-EPI)AfAm 113.84 Est GFR (CKD-EPI)NonAf 98.23 Random Glucose 125 H Calcium 9.2 Total Bilirubin 0.8 AST 35 ALT 67 H Alkaline Phosphatase 93 Creatine Kinase 83 Troponin I < 0.03 Total Protein 6.7 Albumin 4.1 ASSESSMENT/PLAN: 53 year-old female with a PMH significant for ankylosing spondylitis, polysubstance abuse, eating disorder, anemia, GERD, and depression/anxiety. Chest pain --troponin neg x 1, two pending --CXR unremarkable --Echo ordered --CT head: no acute process --US carotids done 11/05/18: small plaques, no significant stenosis --telemetry monitoring --NPO in event of stress testing --cardiology consult Polysubstance abuse --utox --serum alcohol Ankylosing spondylitis --continue oxycontin BID Polysubstance abuse --monitor closely for s/s of withdrawal Anemia --h/h stable GERD --protonix Depression/anxiety Schizoaffective disorder Eating disorder --continue Latuda, Effexor, trazadone qhs, clonazepam TID FEN Fluids: PO intake adequate Electrolytes: replete as indicated Nutrition: regular diet DVT prophylaxis: subq heparin Dispo: continues to require observation. Full code. Visit type - Emergency Visit Emergency Visit: Yes ED Registration Date: 05/06/19 Care time: The patient presented to the Emergency Department on the above date and was hospitalized for further evaluation of their emergent condition. - New Patient This patient is new to me today: Yes Date on this admission: 05/07/19 - Critical Care Critical Care patient: No
[2019-05-07] MEDS ORDERED: DEXTROSE 5%-NORMAL SALINE 1,000 ML IV SCH (00:30)
[2019-05-07] MEDS ORDERED: traZODone HCL 100 MG TABLET (FP) PO ONE (01:58)
[2019-05-07 02:49] LABS: COCAINE, UR NEGATIVE ng/ml (CUTOFF=300); METHADONE, UR NEGATIVE ng/ml (CUTOFF=300); PHENCYCLIDINE,URINE NEGATIVE ng/ml (CUTOFF=25); URINE AMPHETAMINES NEGATIVE ng/ml (CUTOFF=500)
[2019-05-07 02:52] LABS: OPIATES, URI POSITIVE ng/ml (CUTOFF=300); URINE BARBITURATES POSITIVE ng/ml (CUTOFF=200); URINE BENZODIAZEPINES POSITIVE ng/ml (CUTOFF=200)
[2019-05-07] MEDS ORDERED: ONDANSETRON 4 MG/2 ML VIAL IVPUSH ONE (05:50)
[2019-05-07] MEDS ORDERED: ACETAMINOPHEN 325 MG TABLET (FP) PO ONE (05:50)
[2019-05-07] MEDS: HEPARIN NA (PORCINE) 5,000 UNITS/ML 1ML VIAL SQ SCH ×3 (06:05→21:41)
[2019-05-07] MEDS: clonazePAM 0.5 MG TABLET PO SCH ×3 (06:05→21:41)
[2019-05-07 08:18] LABS: BASO % 0.4 % (0-2.0); EOS % 1.2 % (0-4.5); HEMATOCRIT 34.1 % (32.4-45.2); HEMOGLOBIN 11.9 GM/dl (10.7-15.3); LYMPH % 38.2 % (8-40); MCH 32.4 pg (25.7-33.7); MEAN CELL VOLUME 92.8 fl (80-96); MEAN PLT VOLUME 8.8 fl (7.5-11.1); MONO % 13.9 % (3.8-10.2); NEUT % 46.3 % (42.8-82.8); PLATELET COUNT 186 K/MM3 (134-434); RBC 3.67 M/mm3 (3.60-5.2); RDW 12.9 % (11.6-15.6); WHITE BLOOD COUNT 4.2 K/mm3 (4.0-10.8)
[2019-05-07 08:25] LABS: ALBUMIN 3.5 g/dl (3.4-5.0); CALCIUM 8.7 mg/dl (8.5-10); CREATININE 0.6 mg/dl (0.55-1.3); MAGNESIUM 1.7 mg/dL (1.8-2.4); POTASSIUM 3.1 mmol/L (3.5-5.1); TOT PROT 5.9 g/dl (6.4-8.2)
[2019-05-07 08:34] LABS: ACTIVATED PTT 28.9 SECONDS (25.2-36.5)
[2019-05-07 08:39] LABS: INR 1.09 (0.82-1.09); PROTHROMBIN TIME (PATIENT) 12.2 SEC (10.2-13.0)
[2019-05-07] MEDS: VENLAFAXINE HCL 75 MG E.R. CAPSULES (FP) PO SCH (08:41)
[2019-05-07] MEDS ORDERED: PT OWN MED DRAWER 7, Y5N ONE (09:46)
[2019-05-07] MEDS: PANTOPRAZOLE 40 MG TABLET (FP) PO SCH (10:02)
[2019-05-07] MEDS: oxyCODONE HCL 10 MG SUSTAINED ACTING TABLET PO SCH ×2 (10:02→21:41)
[2019-05-07] MEDS: LURASIDONE HCL 20 MG TABLET PO SCH (10:03)
[2019-05-07] MEDS ORDERED: MAGNESIUM SULF 50% (8.12 MEQ/2 ML-1 GM VIAL) IVPB ONE (11:07)
--- NOTE | 2019-05-07 11:11 | PN ---
Physical Exam: SUBJECTIVE: Patient seen and examined at bedside. Still with chest pain that radiates to left arm. Upset about utox findings, denies use of MDMA, barbituates. OBJECTIVE: Vital Signs Period Temp Pulse Resp BP Sys/Garcia Pulse Ox Last 24 Hr 97.4 F-98.5 F 63-87 18-19 109-126/71-94 97-100 GENERAL: Awake, alert, and fully oriented, in no acute distress. LUNGS: Breath sounds equal, clear to auscultation bilaterally. No wheezes, and no crackles. No accessory muscle use. HEART: Regular rate and rhythm, normal S1 and S2 ABDOMEN: Soft, nontender, not distended UPPER EXTREMITIES: 2+ pulses, warm, well-perfused. No cyanosis. No clubbing. No peripheral edema. LOWER EXTREMITIES: 2+ pulses, warm, well-perfused. No calf tenderness. No peripheral edema. NEUROLOGICAL: Cranial nerves II-XII intact. Normal speech. Normal gait. No tremors. No asterixis. Laboratory Results - last 24 hr 05/06/19 05/06/19 05/06/19 20:50 20:50 20:50 WBC 5.9 RBC 4.27 Hgb 13.1 Hct 39.6 MCV 92.7 MCH 30.5 MCHC 33.0 RDW 13.5 Plt Count 243 MPV 8.4 Absolute Neuts (auto) 3.7 Neutrophils % 60.8 Lymphocytes % 26.0 Monocytes % 12.4 H Eosinophils % 0.4 Basophils % 0.4 PT with INR INR PTT (Actin FS) Sodium 140 Potassium 3.0 L Chloride 102 Carbon Dioxide 29 Anion Gap 9 BUN 10.0 Creatinine 0.7 Est GFR (CKD-EPI)AfAm 113.84 Est GFR (CKD-EPI)NonAf 98.23 Random Glucose 125 H Calcium 9.2 Magnesium Total Bilirubin 0.8 AST 35 ALT 67 H Alkaline Phosphatase 93 Creatine Kinase 83 Troponin I < 0.03 Total Protein 6.7 Albumin 4.1 Opiates Screen Methadone Screen Barbiturate Screen Phencyclidine Screen Ur Amphetamines Screen MDMA (Ecstasy) Screen Benzodiazepines Screen Cocaine Screen U Marijuana (THC) Screen Alcohol, Quantitative 05/07/19 05/07/19 05/07/19 01:53 01:53 03:38 WBC RBC Hgb Hct MCV MCH MCHC RDW Plt Count MPV Absolute Neuts (auto) Neutrophils % Lymphocytes % Monocytes % Eosinophils % Basophils % PT with INR INR PTT (Actin FS) Sodium Potassium Chloride Carbon Dioxide Anion Gap BUN Creatinine Est GFR (CKD-EPI)AfAm Est GFR (CKD-EPI)NonAf Random Glucose Calcium Magnesium Total Bilirubin AST ALT Alkaline Phosphatase Creatine Kinase Troponin I Cancelled Total Protein Albumin Opiates Screen Positive A* Methadone Screen Negative Barbiturate Screen Positive A* Phencyclidine Screen Negative Ur Amphetamines Screen Negative MDMA (Ecstasy) Screen Positive A* Benzodiazepines Screen Positive A* Cocaine Screen Negative U Marijuana (THC) Screen Negative Alcohol, Quantitative < 3.0 05/07/19 05/07/19 05/07/19 03:38 07:46 07:46 WBC 4.2 RBC 3.67 Hgb 11.9 Hct 34.1 MCV 92.8 MCH 32.4 MCHC 35.0 RDW 12.9 Plt Count 186 MPV 8.8 Absolute Neuts (auto) 1.9 Neutrophils % 46.3 Lymphocytes % 38.2 Monocytes % 13.9 H Eosinophils % 1.2 Basophils % 0.4 PT with INR 12.2 INR 1.09 PTT (Actin FS) 28.9 Sodium Potassium Chloride Carbon Dioxide Anion Gap BUN Creatinine Est GFR (CKD-EPI)AfAm Est GFR (CKD-EPI)NonAf Random Glucose Calcium Magnesium Total Bilirubin AST ALT Alkaline Phosphatase Creatine Kinase Troponin I < 0.02 Total Protein Albumin Opiates Screen Methadone Screen Barbiturate Screen Phencyclidine Screen Ur Amphetamines Screen MDMA (Ecstasy) Screen Benzodiazepines Screen Cocaine Screen U Marijuana (THC) Screen Alcohol, Quantitative 05/07/19 05/07/19 07:46 07:46 WBC RBC Hgb Hct MCV MCH MCHC RDW Plt Count MPV Absolute Neuts (auto) Neutrophils % Lymphocytes % Monocytes % Eosinophils % Basophils % PT with INR INR PTT (Actin FS) Sodium 142 Potassium 3.1 L Chloride 107 Carbon Dioxide 29 Anion Gap 6 L BUN 9.0 Creatinine 0.6 Est GFR (CKD-EPI)AfAm 119.77 Est GFR (CKD-EPI)NonAf 103.34 Random Glucose 119 H Calcium 8.7 Magnesium 1.7 L Total Bilirubin 1.0 AST 26 ALT 52 Alkaline Phosphatase 78 D Creatine Kinase Troponin I < 0.03 Total Protein 5.9 L Albumin 3.5 Opiates Screen Methadone Screen Barbiturate Screen Phencyclidine Screen Ur Amphetamines Screen MDMA (Ecstasy) Screen Benzodiazepines Screen Cocaine Screen U Marijuana (THC) Screen Alcohol, Quantitative Active Medications Generic Name Dose Route Start Last Admin Trade Name Eliezer PRN Reason Stop Dose Admin Clonazepam 1 mg 05/07/19 06:00 05/07/19 06:05 Klonopin - PO 1 mg TID MISHA Administration Heparin Sodium (Porcine) 5,000 unit 05/07/19 06:00 05/07/19 06:05 Heparin - SQ 5,000 unit TID MISHA Administration Lurasidone HCl 20 mg 05/07/19 10:00 05/07/19 10:03 Latuda - PO 20 mg DAILY MISHA Administration Magnesium Sulfate 1 gm 05/07/19 11:07 Magnesium Sulfate IVPB 05/07/19 11:08 ONCE ONE Oxycodone HCl 20 mg 05/07/19 10:00 05/07/19 10:02 Oxycontin - PO 20 mg BID MISHA Administration Pantoprazole Sodium 40 mg 05/07/19 10:00 05/07/19 10:02 Protonix - PO 40 mg DAILY MISHA Administration Potassium Chloride 40 meq 05/07/19 11:15 K-Dur - PO 05/07/19 17:16 Q6H MISHA Trazodone HCl 200 mg 05/07/19 22:00 Desyrel - PO HS MISHA Venlafaxine HCl 150 mg 05/07/19 08:00 05/07/19 08:41 Effexor Xr - PO 150 mg DAILY@0800 MISHA Administration ASSESSMENT/PLAN: 53 year-old female with a PMH significant for ankylosing spondylitis, polysubstance abuse, eating disorder, anemia, GERD, and depression/anxiety. Placed on observation for chest pain and syncope. Chest pain Syncope --troponin neg x 3 --CXR unremarkable --Echo pending --CT head: no acute process --US carotids done 11/05/18: small plaques, no significant stenosis --telemetry monitoring: no events --cardiology consult pending Polysubstance abuse --utox positive for opiates, barbituates, MDMA, benzos --serum alcohol undetectable level --monitor closely for s/s of withdrawal Ankylosing spondylitis --continue oxycontin BID Anemia --h/h stable GERD --protonix Depression/anxiety Schizoaffective disorder Eating disorder --continue Latuda, Effexor, trazadone qhs, clonazepam TID Hypokalemia --replete Hypomagnesemia --replete FEN Fluids: PO intake adequate Electrolytes: replete as indicated Nutrition: regular diet DVT prophylaxis: subq heparin Dispo: continues to require observation. Full code. Visit type - Emergency Visit Emergency Visit: Yes ED Registration Date: 05/06/19 Care time: The patient presented to the Emergency Department on the above date and was hospitalized for further evaluation of their emergent condition. - New Patient This patient is new to me today: No - Critical Care Critical Care patient: No
[2019-05-07] MEDS: POTASSIUM CHLORIDE TABS 20 MEQ TABLET.ER (FP) PO SCH ×2 (12:07→17:22)
--- NOTE | 2019-05-07 13:37 | EKG ---
Test Reason : Blood Pressure : / mmHG Vent. Rate : 081 BPM Atrial Rate : 081 BPM P-R Int : 106 ms QRS Dur : 090 ms QT Int : 384 ms P-R-T Axes : 064 074 078 degrees QTc Int : 446 ms SINUS RHYTHM WITH SHORT NE T WAVE ABNORMALITY, CONSIDER ANTERIOR ISCHEMIA ABNORMAL ECG WHEN COMPARED WITH ECG OF 06-MAY-2019 20:38, NO SIGNIFICANT CHANGE WAS FOUND Confirmed by MD KESHAWN, ABIOLA ([id number]) on 05/07/2019 1:36:55 PM Referred By: MD HURLEY Confirmed By:ABIOLA LIAO MD
--- NOTE | 2019-05-07 13:37 | EKG ---
Test Reason : Blood Pressure : / mmHG Vent. Rate : 067 BPM Atrial Rate : 067 BPM P-R Int : 108 ms QRS Dur : 088 ms QT Int : 412 ms P-R-T Axes : 063 076 075 degrees QTc Int : 435 ms SINUS RHYTHM WITH SHORT [place] ABNORMAL ECG WHEN COMPARED WITH ECG OF 13-MAR-2019 14:53, [place] INTERVAL HAS DECREASED QT HAS SHORTENED Confirmed by MD KESHAWN, ABIOLA ([id number]) on 05/07/2019 1:37:22 PM Referred By: Confirmed By:ABIOLA LIAO MD
--- NOTE | 2019-05-07 14:41 | ECHO ---
Version: 1 Name: ADRY GUERRA Exam: Adult Echocardiogram Study Date: 05/07/2019, 2:05 PM Age: 53 Years MMode/2D Measurements & Calculations IVSd: 0.78 cm LVIDs: 2.39 cm LVIDd: 3.2 cm LVPWd: 0.83 cm LVOT diam: 2.00 cm Ao root diam: 2.10 cm LA dimension: 2.08 cm Doppler Measurements & Calculations MV E max leandro: 76.2 cm/sec MV A max leandro: 67.2 cm/sec MV E/A: 1.13 MR max P.9 mmHg Ao max P.4 mmHg Ao V2 max: 116.5 cm/sec Left Ventricle The left ventricular size, thickness and function are normal. Ejection Fraction = 70. Right Ventricle The right ventricle is normal in size and function. Atria Normal left and right atrial size and function. Mitral Valve The mitral valve is normal. There is mild mitral regurgitation. Tricuspid Valve The tricuspid valve is not well visualized, but is grossly normal. There is mild tricuspid regurgita tion. Aortic Valve The aortic valve is normal in structure and function. Pulmonic Valve The pulmonic valve is not well visualized. Great Vessels The aortic root is normal size. Normal aortic arch, descending and ascending aorta. Pericardium/Pleura There is no pericardial effusion. Summary Statements The left ventricular size, thickness and function are normal The right ventricle is normal in size and function. Normal left and right atrial size and function. The mitral valve is normal. There is mild mitral regurgitation. The tricuspid valve is not well visualized, but is grossly normal. There is mild tricuspid regurgitation. The aortic valve is normal in structure and function. The pulmonic valve is not well visualized. The aortic root is normal size. Normal aortic arch, descending and ascending aorta There is no pericardial effusion. Nazario Niremberg 05/07/2019, 6:40 PM Ordering Physician: Syl Atwood Performed By: Trini Dougherty
--- NOTE | 2019-05-07 20:34 | CON.CARD ---
Consult Consult Specialty:: cardiology Reason for Consultation:: chest pain; SOB - History of Present Illness History of Present Illness: The patient is a 53-year-old female who presents to the emergency department with chest pain and s/p a syncopal episode. The patient presents with a few hours of constant, left-sided chest pain, thats described as crampy and tight, with pain radiating down the left arm. The patient reports about 2 hours into chest pain presentation she went to the bathroom when she had an acute onset of dizziness followed by an unwitnessed fall with LOC and head injury. The patient reports an additional complaint of nausea, vomiting, and diarrhea. Last vomiting episode was last night and states shes been having episodes of diarrhea throughout today. PAST MEDICAL HISTORY: Ankylosing Spondylitis PAST SURGICAL HISTORY: no significant history FAMILY HISTORY: no pertinent history SOCIAL HISTORY: Pt lives with family. 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) - Alcohol/Substance Use Hx Alcohol Use: No - Smoking History Smoking history: Never smoked Have you smoked in the past 12 months: No Aproximately how many cigarettes per day: 10 If you are a former smoker, when did you quit?: 2011 - Social History Usual Living Arrangement: With Parent ADL: Independent History of Recent Travel: No Home Medications - Allergies Allergies/Adverse Reactions: Allergies Allergy/AdvReac Type Severity Reaction Status Date / Time prochlorperazine edisylate Allergy Intermediate jumping Verified 05/06/19 20:34 [From Compazine] out of my skin prochlorperazine maleate Allergy Intermediate jumping Verified 05/06/19 20:34 [From Compazine] out of my skin chlorpromazine HCl Allergy Verified 01/14/19 19:10 [From Thorazine] mushroom Allergy Verified 01/14/19 19:10 - Home Medications Home Medications: Ambulatory Orders clonazePAM [KlonoPIN] 1 mg PO TID tablet 05/18/16 Oxycodone HCl/Acetaminophen [Percocet 10-325 mg Tablet] 1 each PO QID PRN Venlafaxine HCl ER [Effexor Xr -] 150 mg PO DAILY 02/26/18 oxyCODONE SR [Oxycontin] 20 mg PO BID 02/26/18 traZODone HCL [Trazodone HCl] 200 mg PO HS 09/17/18 Lurasidone HCl [Latuda] 20 mg PO DAILY 01/14/19 Zolpidem Tartrate [Ambien] 10 mg PO HS 05/06/19 Family Disease History - Family Disease History Family Disease History: CA: Father (melanoma 91), Mother (breast ca bilateral 50 and 79), Sister (x 2 breast ca at age 40) Vital Signs: Vital Signs Temperature 98.4 F 05/07/19 18:00 Pulse Rate 80 05/07/19 18:00 Respiratory Rate 16 05/07/19 18:00 Blood Pressure 126/85 05/07/19 18:00 O2 Sat by Pulse Oximetry (%) 99 05/07/19 18:00 - Other Data Labs, Other Data: CBC, BMP 05/07/19 07:46 05/07/19 07:46 INR, PTT INR 1.09 (0.82-1.09) 05/07/19 07:46 Troponin, BNP 05/06/19 05/07/19 05/07/19 20:50 03:38 03:38 Troponin I < 0.03 Cancelled < 0.02 05/07/19 07:46 Troponin I < 0.03 Troponin, BNP 05/06/19 05/07/19 05/07/19 20:50 03:38 03:38 Troponin I < 0.03 Cancelled < 0.02 05/07/19 07:46 Troponin I < 0.03 Problem List - Problems (1) Ankylosing spondylitis Code(s): M45.9 - ANKYLOSING SPONDYLITIS OF UNSPECIFIED SITES IN SPINE (2) Chest pain Assessment/Plan: pressure-like left-sided chest pain at rest, beginning two days ago, off and on , lasting minutes at a time, at times involving the left arm. TNI < 0.03 x 3 . EKG: NSR ECHO: normal LVEF Plan: Stress treadmill MIBI. Code(s): R07.9 - CHEST PAIN, UNSPECIFIED Qualifiers: Chest pain type: unspecified Qualified Code(s): R07.9 - Chest pain, unspecified (3) Syncope Code(s): R55 - SYNCOPE AND COLLAPSE Qualifiers: Syncope type: unspecified Qualified Code(s): R55 - Syncope and collapse (4) Acute exacerbation of chronic low back pain Code(s): M54.5 - LOW BACK PAIN; G89.29 - OTHER CHRONIC PAIN (5) Anxiety and depression Code(s): F41.9 - ANXIETY DISORDER, UNSPECIFIED; F32.9 - MAJOR DEPRESSIVE DISORDER, SINGLE EPISODE, UNSPECIFIED (6) History of anorexia nervosa Code(s): Z86.59 - PERSONAL HISTORY OF OTHER MENTAL AND BEHAVIORAL DISORDERS (7) Hypokalemia Code(s): E87.6 - HYPOKALEMIA
[2019-05-07 21:50] LABS: CHOLESTEROL 150 mg/dL (50-200); HDL CHOLESTEROL 95 mg/dL (40-60); TRIGLYCERIDES 55 mg/dL (0-150)
[2019-05-07] MEDS ORDERED: traZODone HCL 100 MG TABLET (FP) PO SCH (22:00)
[2019-05-08] MEDS: clonazePAM 0.5 MG TABLET PO SCH ×2 (05:24→14:17)
[2019-05-08] MEDS: HEPARIN NA (PORCINE) 5,000 UNITS/ML 1ML VIAL SQ SCH ×2 (05:24→14:17)
[2019-05-08 07:21] LABS: CALCIUM 8.5 mg/dl (8.5-10); CREATININE 0.6 mg/dl (0.55-1.3); MAGNESIUM 1.9 mg/dL (1.8-2.4); POTASSIUM 3.4 mmol/L (3.5-5.1)
--- NOTE | 2019-05-08 07:43 | PN ---
Progress Note, Physician History of Present Illness: The patient is a 53-year-old female who presents to the emergency department with chest pain and s/p a syncopal episode. The patient presents with a few hours of constant, left-sided chest pain, thats described as crampy and tight, with pain radiating down the left arm. The patient reports about 2 hours into chest pain presentation she went to the bathroom when she had an acute onset of dizziness followed by an unwitnessed fall with LOC and head injury. The patient reports an additional complaint of nausea, vomiting, and diarrhea. Last vomiting episode was last night and states shes been having episodes of diarrhea throughout today. - Current Medication List Current Medications: Active Medications Clonazepam (Klonopin -) 1 mg PO TID [facility] Last Admin: 05/08/19 05:24 Dose: 1 mg Heparin Sodium (Porcine) (Heparin -) 5,000 unit SQ TID [facility] Last Admin: 05/08/19 05:24 Dose: 5,000 unit Lurasidone HCl (Latuda -) 20 mg PO DAILY [facility] Last Admin: 05/07/19 10:03 Dose: 20 mg Oxycodone HCl (Oxycontin -) 20 mg PO BID [facility] Last Admin: 05/07/19 21:41 Dose: 20 mg Pantoprazole Sodium (Protonix -) 40 mg PO DAILY [facility] Last Admin: 05/07/19 10:02 Dose: 40 mg Trazodone HCl (Desyrel -) 200 mg PO HS [facility] Last Admin: 05/07/19 21:41 Dose: 200 mg Venlafaxine HCl (Effexor Xr -) 150 mg PO DAILY@0800 [facility] Last Admin: 05/07/19 08:41 Dose: 150 mg - Objective Vital Signs: Vital Signs Temperature 99.2 F 05/08/19 04:00 Pulse Rate 68 05/08/19 04:00 Respiratory Rate 18 05/08/19 04:00 Blood Pressure 114/82 05/08/19 04:00 O2 Sat by Pulse Oximetry (%) 97 05/08/19 06:43 Labs: CBC, BMP 05/07/19 07:46 05/08/19 06:54 INR, PTT INR 1.09 (0.82-1.09) 05/07/19 07:46 Assessment/Plan - Problems (1) Ankylosing spondylitis Code(s): M45.9 - ANKYLOSING SPONDYLITIS OF UNSPECIFIED SITES IN SPINE (2) Chest pain Assessment/Plan: pressure-like left-sided chest pain at rest, beginning two days ago, off and on , lasting minutes at a time, at times involving the left arm. TNI < 0.03 x 3 . EKG: NSR ECHO: normal LVEF Stress treadmill MIBI negative for ischemia. From cardiac point of view patient can be follow up as outpatient. Code(s): R07.9 - CHEST PAIN, UNSPECIFIED Qualifiers: Chest pain type: unspecified Qualified Code(s): R07.9 - Chest pain, unspecified (3) Syncope Code(s): R55 - SYNCOPE AND COLLAPSE Qualifiers: Syncope type: unspecified Qualified Code(s): R55 - Syncope and collapse (4) Acute exacerbation of chronic low back pain Code(s): M54.5 - LOW BACK PAIN; G89.29 - OTHER CHRONIC PAIN (5) Anxiety and depression Code(s): F41.9 - ANXIETY DISORDER, UNSPECIFIED; F32.9 - MAJOR DEPRESSIVE DISORDER, SINGLE EPISODE, UNSPECIFIED (6) History of anorexia nervosa Code(s): Z86.59 - PERSONAL HISTORY OF OTHER MENTAL AND BEHAVIORAL DISORDERS (7) Hypokalemia Code(s): E87.6 - HYPOKALEMIA
[2019-05-08] MEDS: oxyCODONE HCL 10 MG SUSTAINED ACTING TABLET PO SCH ×2 (08:41→12:34)
[2019-05-08] MEDS: VENLAFAXINE HCL 75 MG E.R. CAPSULES (FP) PO SCH (08:41)
--- NOTE | 2019-05-08 10:18 | EKG ---
Test Reason : Blood Pressure : / mmHG Vent. Rate : 060 BPM Atrial Rate : 060 BPM P-R Int : 108 ms QRS Dur : 084 ms QT Int : 418 ms P-R-T Axes : 065 067 074 degrees QTc Int : 418 ms SINUS RHYTHM WITH SHORT MO ANTERIOR INFARCT , AGE UNDETERMINED ABNORMAL ECG WHEN COMPARED WITH ECG OF 07-MAY-2019 09:10, NO SIGNIFICANT CHANGE WAS FOUND Confirmed by MINH RICHARDS, BRICE ([id number]) on 05/08/2019 10:18:37 AM Referred By: JUDI HURLEY Confirmed By:BRICE WILKINSON MD
[2019-05-08] MEDS ORDERED: PT OWN MED DRAWER 7, Y5N ONE (14:05)
[2019-05-08 14:15] VITALS: BP 124/88; PULSE 76; TEMP 98.6
[2019-05-08] MEDS: LURASIDONE HCL 20 MG TABLET PO SCH (14:16)
[2019-05-08] MEDS: PANTOPRAZOLE 40 MG TABLET (FP) PO SCH (14:17)
--- NOTE | 2019-05-08 16:00 | DS ---
Physical Exam: SUBJECTIVE: Patient seen and examined at bedside. OBJECTIVE: Vital Signs Period Temp Pulse Resp BP Sys/Garcia Pulse Ox Last 24 Hr 98.4 F-99.2 F 66-80 16-18 114-136/82-88 97-99 PHYSICAL EXAM GENERAL: The patient is awake, alert, and fully oriented, in no acute distress. LUNGS: Breath sounds equal, clear to auscultation bilaterally, no wheezes, no crackles, no accessory muscle use. HEART: Regular rate and rhythm, S1, S2 ABDOMEN: Soft, nontender, nondistended EXTREMITIES: 2+ pulses, warm, well-perfused, no edema. NEUROLOGICAL: Cranial nerves II through XII grossly intact. Normal speech, gait not observed. LABS Laboratory Results - last 24 hr 05/07/19 05/07/19 05/08/19 07:46 07:46 06:54 Sodium 142 137 Potassium 3.1 L 3.4 L Chloride 107 105 Carbon Dioxide 29 27 Anion Gap 6 L 5 L BUN 9.0 12.0 Creatinine 0.6 0.6 Est GFR (CKD-EPI)AfAm 119.77 119.77 Est GFR (CKD-EPI)NonAf 103.34 103.34 Random Glucose 119 H 101 Hemoglobin A1c % Calcium 8.7 8.5 Magnesium 1.7 L 1.9 Total Bilirubin 1.0 AST 26 ALT 52 Alkaline Phosphatase 78 D Creatine Kinase Troponin I Total Protein 5.9 L Albumin 3.5 Triglycerides Cancelled 55 Cholesterol Cancelled 150 Total LDL Cholesterol Cancelled 48 HDL Cholesterol Cancelled 95 H TSH 1.10 05/08/19 05/08/19 05/08/19 06:54 06:55 06:55 Sodium Potassium Chloride Carbon Dioxide Anion Gap BUN Creatinine Est GFR (CKD-EPI)AfAm Est GFR (CKD-EPI)NonAf Random Glucose Hemoglobin A1c % 5.0 Calcium Magnesium Total Bilirubin AST ALT Alkaline Phosphatase Creatine Kinase 68 Troponin I < 0.03 Total Protein Albumin Triglycerides Cholesterol Total LDL Cholesterol HDL Cholesterol [facility] HOSPITAL COURSE: Date of Admission:05/06/19 Date of Discharge: 05/08/19 Minutes to complete discharge: 35 Discharge Summary Reason For Visit: CHEST PAIN/SYNCOPE Current Active Problems Ankylosing spondylitis (Acute) Chest pain (Acute) Syncope (Acute) Condition: Improved - Instructions Diet, Activity, Other Instructions: It is recommended you follow up with your primary care provider, Dr. Rodriguez, within one week of your discharge. Return to the emergency department for any new or worsening symptoms. Referrals: Eriberto Rodriguez MD [Primary Care Provider] - Disposition: HOME - Home Medications Comprehensive Discharge Medication List: Ambulatory Orders clonazePAM [KlonoPIN] 1 mg PO TID tablet 05/18/16 Oxycodone HCl/Acetaminophen [Percocet 10-325 mg Tablet] 1 each PO QID PRN Venlafaxine HCl ER [Effexor Xr -] 150 mg PO DAILY 02/26/18 oxyCODONE SR [Oxycontin] 20 mg PO BID 02/26/18 traZODone HCL [Trazodone HCl] 200 mg PO HS 09/17/18 Lurasidone HCl [Latuda] 20 mg PO DAILY 01/14/19 Zolpidem Tartrate [Ambien] 10 mg PO HS 05/06/19 This patient is new to me today: No Emergency Visit: Yes ED Registration Date: 05/06/19 Care time: The patient presented to the Emergency Department on the above date and was hospitalized for further evaluation of their emergent condition. Critical Care patient: No - Discharge Referral Referred to [facility] Med P.C[facility] Yes Physician Referral: Eriberto Rodriguez MD (Int Med)
== END 2019-05-08 17:30 | disposition home or self-care (01) ==
LOC: FER 20:31 → FM/S 21:51 → UNDOADMOB 23:04 → FM/S 05-07 11:55
PROVIDERS: ADMIT Internal Medicine; ATTEND Nurse Practitioner Acute Care
PROC: 3E033GC Introduction of Other Therapeutic Substance into Peripheral Vein, Percutaneous Approach (ICD-10-PCS; principal; 2019-05-06)
PROC: 3E0337Z Introduction of Electrolytic and Water Balance Substance into Peripheral Vein, Percutaneous Approach (ICD-10-PCS; 2019-05-06)
DX: R07.89 Other chest pain (principal); R55 Syncope and collapse; F32.9 Major depressive disorder, single episode, unspecified; F41.9 Anxiety disorder, unspecified; F50.9 Eating disorder, unspecified; F11.10 Opioid abuse, uncomplicated; F10.10 Alcohol abuse, uncomplicated; F16.10 Hallucinogen abuse, uncomplicated; K21.9 Gastro-esophageal reflux disease without esophagitis; D64.9 Anemia, unspecified; E87.6 Hypokalemia; E83.42 Hypomagnesemia; M54.5 Low back pain; G89.29 Other chronic pain; Z88.8 Allergy status to other drugs, medicaments and biological substances; Z87.898 Personal history of other specified conditions; W18.39XA Other fall on same level, initial encounter; Y93.9 Activity, unspecified; Y92.9 Unspecified place or not applicable
CPT/HCPCS: 36415; 70450-TC; 71045-TC-FY; 72050-TC-FY; 72070-TC-FY; 78452-TC; 80048; 80053; 80061; 80307; 82550; 83036; 83721; 83735; 84443; 84484; 85025; 85610; 85730; 93005; 93017; 93306-TC; 96361; 96374; 96375; 96376; 97116-GP; 97161-GP; 99282-25; A9502; G0378; J1644; J7030

== ENCOUNTER 2019-06-10 19:52 | Inpatient (IN) | payer OTHER, BC ==
[2019-06-10 20:45] LABS: HEMATOCRIT 32.3 % (32.4-45.2); HEMOGLOBIN 10.7 GM/dl (10.7-15.3); MCH 32.3 pg (25.7-33.7); MCHC 33.2 g/dl (32.0-36.0); MEAN CELL VOLUME 97.2 fl (80-96); MEAN PLT VOLUME 7.5 fl (7.5-11.1); PLATELET COUNT 150 K/MM3 (134-434); RBC 3.32 M/mm3 (3.60-5.2); RDW 15.1 % (11.6-15.6); WHITE BLOOD COUNT 3.2 K/mm3 (4.0-10.8)
[2019-06-10 20:59] LABS: ALBUMIN 3.5 g/dl (3.4-5.0); BILIRUBIN,TOTAL 0.3 mg/dl (0.2-1); CALCIUM 8.3 mg/dl (8.5-10); CREATININE 0.5 mg/dl (0.55-1.3); TOT PROT 5.7 g/dl (6.4-8.2)
[2019-06-10 21:06] LABS: POTASSIUM 2.5 mmol/L (3.5-5.1)
[2019-06-10] MEDS ORDERED: POTASSIUM CHLORIDE TABS 20 MEQ TABLET.ER (FP) PO ONE ×2 (21:13→21:14)
--- NOTE | 2019-06-10 21:25 | PDOC ---
Documentation entered by Selene Burdick SCRIBE, acting as scribe for Marianela Vela MD. Marianela Vela MD: This documentation has been prepared by the Gennaro coates Xhesika, SCRIBE, under my direction and personally reviewed by me in its entirety. I confirm that the documentation accurately reflects all work, treatment, procedures, and medical decision making performed by me. History of Present Illness - General Chief Complaint: Seizure Stated Complaint: I HAD ANOTHER SEIZURE History Source: Patient Exam Limitations: No Limitations - History of Present Illness Initial Comments: 06/10/19 20:21 The patient is a 53 year old female, with a significant past medical history of seizure disorder (last episode 2017 after huffing compressed air), alcohol use, ankylosing spondylosis, Hbl 27+, spinal stenosis, and depression who presents to the emergency department feeling tired s/p witnessed seizure. The patient states her seizure was witnessed by her parents aids, however, she does not have any recollection. Patient notes she inhaled compressed air for the first time in 3 months prior to her seizure. Patient notes she has a seizure every time after inhaling compressed air. Patient denies alcohol intake, denies biting tongue, denies hitting head. PAST SURGICAL HISTORY: no significant history FAMILY HISTORY: no pertinent history SOCIAL HISTORY: Pt lives with family and is employed. MEDICATIONS: reviewed ALLERGIES: As per nursing notes 06/10/19 21:22 Assessment and plan: This is a 53-year-old female who has intermittent seizures secondary to huffing. Patient said her last seizure secondary to huffing was 3 months ago but she did not come to the ED. Patient had another seizure again this evening during huffing and her sister made her come to the ED. Otherwise patient denied any complaints. Patient does not take any seizure medication. Patient does have a history of alcohol abuse but said she has not been drinking alcohol. Patient does take prescriptions narcotic medications which she said she has been compliant with. Patient had a normal exam here in the ED a CAT scan was not done secondary to patient's seizure history of seizures related to her huffing. Workup initiated including CBC and comp to rule out any electrolyte causes for her seizures 06/10/19 21:24 Patient's potassium will came back very low at 2.5. Patient given 60 mEq of K- dur and will be admitted to the hospitalist service for hypokalemia. Past History - Past Medical History Allergies/Adverse Reactions: Allergies Allergy/AdvReac Type Severity Reaction Status Date / Time prochlorperazine edisylate Allergy Intermediate jumping Verified 06/10/19 19:54 [From Compazine] out of my skin prochlorperazine maleate Allergy Intermediate jumping Verified 06/10/19 19:54 [From Compazine] out of my skin chlorpromazine HCl Allergy Verified 06/10/19 19:54 [From Thorazine] mushroom Allergy Verified 06/10/19 19:54 Home Medications: Ambulatory Orders clonazePAM [KlonoPIN] 1 mg PO TID tablet 05/18/16 Venlafaxine HCl ER [Effexor Xr -] 150 mg PO DAILY 02/26/18 oxyCODONE SR [Oxycontin] 20 mg PO BID 02/26/18 traZODone HCL [Trazodone HCl] 200 mg PO HS 09/17/18 Lurasidone HCl [Latuda] 20 mg PO DAILY 01/14/19 Oxycodone HCl 5 mg PO PRN 06/10/19 Anemia: Yes (TREATED WITH IRON IN THE PAST) Asthma: No Cancer: No Cardiac Disorders: No CVA: No COPD: No CHF: No Dementia: No Diabetes: No GI Disorders: Yes (REFLUX) Disorders: No HTN: No Hypercholesterolemia: No Liver Disease: No Psychiatric Problems: Yes (depression, anxiety) Seizures: No Thyroid Disease: No - Surgical History Abdominal Surgery: No Appendectomy: No Cardiac Surgery: No Cholecystectomy: No Lung Surgery: No Neurologic Surgery: No Orthopedic Surgery: No - Suicide/Smoking/Psychosocial Hx Smoking Status: No Smoking History: Never smoked Have you smoked in the past 12 months: No Number of Cigarettes Smoked Daily: 10 If you are a former smoker, when did you quit?: 2011 Information on smoking cessation initiated: No 'Breaking Loose' booklet given: 10/17/16 Hx Alcohol Use: No Drug/Substance Use Hx: No Substance Use Type: Opiates, Prescribed Hx Substance Use Treatment: No Review of Systems - Review of Systems Able to Perform ROS?: Yes Comments:: 06/10/19 20:22 General: No fevers or chills, no weakness, no weight loss. (+) tired. HEENT: No change in vision. No sore throat,. No ear pain CardioVascular: No chest pain or shortness of breath Respiratory:No cough, or wheezing. Gastrointestinal: no nausea, vomiting, diarrhea or constipation, No rectal bleeding Genitourinary: No dysuria, hematuria, or frequency Musculoskeletal: No joint or muscle pain or swelling Neurologic: No headache, vertigo, dizziness or loss of consciousness. (+) seizure. Psychiatric: nor depression Skin: No rashes or easy bruising Endocrine: no increased thirst or abnormal weight change Allergic: no skin or latex allergy All other systems reviewed and normal *Physical Exam - Vital Signs Last Vital Signs Temp Pulse Resp BP Pulse Ox 98.2 F 86 16 111/75 96 06/10/19 19:56 06/10/19 19:56 06/10/19 19:56 06/10/19 19:56 06/10/19 19:56 - Physical Exam Comments: 06/10/19 20:22 General: Well-nourished well-developed individual, no acute distress HEENT: Throat: Normal, tonsils normal, no erythema or exudate Neck: Supple, no meningeal signs, no lymphadenopathy Eyes::Pupils equal reactive and round, extraocular motion intact Chest: Nontender to palpation Cardiac: S1-S2 normal, regular rate and rhythm, no murmurs rubs or gallops Respiratory: Lungs clear to auscultation bilateral Abdomen: Soft, nondistended, normal bowel sounds, nontender to palpation diffusely Extremities: Warm, dry, no cyanosis, clubbing, or edema Skin: No rashes Neuro: Alert and oriented x3, nonfocal exam, grossly intact, normal gait Psych: Normal mood and affect ED Treatment Course - LABORATORY CBC & Chemistry Diagram: 06/10/19 20:25 06/10/19 20:25 - ADDITIONAL ORDERS Additional order review: Laboratory Results 06/10/19 20:25 Sodium 143 Potassium 2.5 L* Chloride 104 Carbon Dioxide 34 H Anion Gap 5 L BUN 12.0 Creatinine 0.5 L Est GFR (CKD-EPI)AfAm 127.17 Est GFR (CKD-EPI)NonAf 109.72 Random Glucose 126 H Calcium 8.3 L Total Bilirubin 0.3 AST 20 ALT 18 Alkaline Phosphatase 60 Total Protein 5.7 L Albumin 3.5 09/23/19 20:25 RBC 3.32 L MCV 97.2 H MCHC 33.2 RDW 15.1 D MPV 7.5 Neutrophils % No Result Required. Lymphocytes % No Result Required. - RADIOLOGY Radiology Studies Ordered: Category Date Time Status CHEST X-RAY PORTABLE* [RAD] Stat Radiology 06/10/19 21:12 Ordered - Medications Given in the ED: ED Medications Discontinued Medications Generic Name Dose Route Start Last Admin Trade Name Freq PRN Reason Stop Dose Admin Potassium Chloride 60 meq 06/10/19 21:14 06/10/19 21:19 K-Dur - PO 06/10/19 21:15 60 meq ONCE ONE Administration *DC/Admit/Observation/Transfer Diagnosis at time of Disposition: Hypokalemia, Seizure - Discharge Dispostion Condition at time of disposition: Stable Decision to Admit order: Yes - Referrals - Patient Instructions - Post Discharge Activity
[2019-06-10 21:59] LABS: PLATELET ESTIMATE ADEQUATE
--- NOTE | 2019-06-10 22:09 | HP ---
CHIEF COMPLAINT: Seizure-type activity PCP: Dr. Rodriguez HISTORY OF PRESENT ILLNESS: 53 year-old female with a PMH significant for ankylosing spondylitis, polysubstance abuse, eating disorder, schizoaffective disorder, anemia, GERD, and depression/anxiety. Presented to the ED for evaluation of seizure-type activity. At 4:00pm today patient went to a store and purchased a can of computer-cleaning spray, brought it home, and inhaled the spray several times. The next thing the patient remembers is her sister coming into her room. The sister said she observed the patient "thrashing." Patient states she was immediately oriented, was not incontient, did not bite her tongue. The sister encouraged patient to come to the ED. Patient told this provider the last time she "huffed" was 6 months ago, although she told nursing staff she does it more frequently. She denies other drug use, denies alcohol use. Recently admitted ( to 05/08/19) for chest pain with negative workup. ER course was notable for: (1) K2.5 Recent Travel: No PAST MEDICAL HISTORY: Ankylosing spondylitis/gene [id number] Polysubstance abuse (alcohol, opioids, ecstasy, inhalants) Eating disorder Schizoaffective disorder Anemia GERD Depression/anxiety PAST SURGICAL HISTORY: Myomectomy x 2 Social History: lives with elderly parents, unemployed Smoking: quit 2011 Alcohol: last drink 4 years ago Drugs: admits to dependence on opioids; denies ecstasy (that was a false positive); admits to huffing Family history: Mother alive 91 CAD s/p [place] s/p CABG, OCD/depression; father alive 80s CAD s/p [place] s/p CABG, PAD, Parkinsons; two brothers a&w; sister with breast cancer and chemo induced heart failure Allergies prochlorperazine edisylate [From Compazine] Allergy (Intermediate, Verified 19:54) jumping out of my skin prochlorperazine maleate [From Compazine] Allergy (Intermediate, Verified 19:54) jumping out of my skin chlorpromazine HCl [From Thorazine] Allergy (Verified 06/10/19 19:54) mushroom Allergy (Verified 06/10/19 19:54) HOME MEDICATIONS: Home Medications Medication Instructions Recorded clonazePAM [KlonoPIN] 1 mg PO TID tablet 05/18/16 Venlafaxine HCl ER [Effexor Xr -] 150 mg PO DAILY 02/26/18 oxyCODONE SR [Oxycontin] 20 mg PO BID 02/26/18 traZODone HCL [Trazodone HCl] 200 mg PO HS 09/17/18 Lurasidone HCl [Latuda] 20 mg PO DAILY 01/14/19 Oxycodone HCl 5 mg PO PRN 06/10/19 REVIEW OF SYSTEMS CONSTITUTIONAL: Absent: fever, chills, diaphoresis, generalized weakness, malaise, loss of appetite, weight change HEENT: Absent: rhinorrhea, nasal congestion, throat pain, throat swelling, difficulty swallowing, mouth swelling, ear pain, eye pain, visual changes CARDIOVASCULAR: Absent: chest pain, syncope, palpitations, irregular heart rate, lightheadedness , peripheral edema RESPIRATORY: Absent: cough, shortness of breath, dyspnea with exertion, orthopnea, wheezing, stridor, hemoptysis GASTROINTESTINAL: Absent: abdominal pain, abdominal distension, nausea, vomiting, diarrhea, constipation, melena, hematochezia GENITOURINARY: Absent: dysuria, frequency, urgency, hesitancy, hematuria, flank pain, genital pain MUSCULOSKELETAL: Absent: myalgia, arthralgia, joint swelling, back pain, neck pain SKIN: Absent: rash, itching, pallor HEMATOLOGIC/IMMUNOLOGIC: Absent: easy bleeding, easy bruising, lymphadenopathy, frequent infections ENDOCRINE: Absent: unexplained weight gain, unexplained weight loss, heat intolerance, cold intolerance NEUROLOGIC: +seizure type activity Absent: headache, focal weakness or paresthesias, dizziness, unsteady gait, seizure, mental status changes, bladder or bowel incontinence PSYCHIATRIC: Absent: anxiety, depression, suicidal or homicidal ideation, hallucinations. PHYSICAL EXAMINATION Vital Signs - 24 hr 06/10/19 19:56 Temperature 98.2 F Pulse Rate 86 Respiratory 16 Rate Blood Pressure 111/75 O2 Sat by Pulse 96 Oximetry (%) GENERAL: Awake, alert, and fully oriented, in no acute distress. HEAD: Normal with no signs of trauma. EYES: Pupils equal, round and reactive to light, extraocular movements intact, sclera anicteric, conjunctiva clear. No lid lag. LUNGS: Breath sounds equal, clear to auscultation bilaterally. No wheezes, and no crackles. No accessory muscle use. HEART: Regular rate and rhythm, normal S1 and S2 ABDOMEN: Soft, nontender, not distended UPPER EXTREMITIES: 2+ pulses, warm, well-perfused. No cyanosis. No clubbing. No peripheral edema. LOWER EXTREMITIES: 2+ pulses, warm, well-perfused. No calf tenderness. No peripheral edema. NEUROLOGICAL: Cranial nerves II-XII intact. Normal speech. Laboratory Results - last 24 hr 06/10/19 06/10/19 20:25 20:25 WBC 3.2 L RBC 3.32 L Hgb 10.7 Hct 32.3 L MCV 97.2 H MCH 32.3 MCHC 33.2 RDW 15.1 D Plt Count 150 MPV 7.5 Absolute Neuts (auto) 1.4 Neutrophils % No Result Required. Neutrophils % (Manual) 54.0 Lymphocytes % No Result Required. Lymphocytes % (Manual) 32.0 Monocytes % (Manual) 14 H Platelet Estimate Adequate Sodium 143 Potassium 2.5 L* Chloride 104 Carbon Dioxide 34 H Anion Gap 5 L BUN 12.0 Creatinine 0.5 L Est GFR (CKD-EPI)AfAm 127.17 Est GFR (CKD-EPI)NonAf 109.72 Random Glucose 126 H Calcium 8.3 L Total Bilirubin 0.3 AST 20 ALT 18 Alkaline Phosphatase 60 Total Protein 5.7 L Albumin 3.5 ASSESSMENT/PLAN: 53 year-old female with a PMH significant for ankylosing spondylitis, polysubstance abuse, eating disorder, schizoaffective disorder, anemia, GERD, and depression/anxiety. Admitted for seizure type activity and hypokalemia. Recently admitted for chest pain with negative workup 05/06 to 05/08. Seizure-type activity --following inhalation of computer-cleaning spray, no post-ictal state --non focal neuro exam --telemetry monitoring --neuro checks q4h Hypokalemia --repleted Polysubstance abuse --utox ordered --serum alcohol negative --monitor closely for s/s of withdrawal Ankylosing spondylitis --hold oxycontin --oxycodone PRN Anemia --h/h stable GERD --protonix Depression/anxiety Schizoaffective disorder Eating disorder --continue Latuda, Effexor, trazadone qhs, clonazepam TID FEN Fluids:NS+40K@100mL/hr x 1 L Electrolytes: replete as indicated Nutrition: regular diet DVT prophylaxis: subq heparin Dispo: continues to require observation. Full code. Visit type - Emergency Visit Emergency Visit: Yes ED Registration Date: 06/10/19 Care time: The patient presented to the Emergency Department on the above date and was hospitalized for further evaluation of their emergent condition. - New Patient This patient is new to me today: Yes Date on this admission: 06/11/19 - Critical Care Critical Care patient: No
[2019-06-10] MEDS ORDERED: oxyCODONE HCL 5 MG TABLET PO PRN (22:19)
[2019-06-10] MEDS ORDERED: SODIUM CHLORIDE 1,000 ML with POTASSIUM CHLORIDE 40 MEQ IVPB SCH (22:45)
[2019-06-10 23:27] VITALS: BMI 19.8
[2019-06-11 03:10] LABS: COCAINE, UR NEGATIVE ng/ml (CUTOFF=300); METHADONE, UR NEGATIVE ng/ml (CUTOFF=300); PHENCYCLIDINE,URINE NEGATIVE ng/ml (CUTOFF=25); URINE AMPHETAMINES NEGATIVE ng/ml (CUTOFF=500); URINE BARBITURATES NEGATIVE ng/ml (CUTOFF=200); URINE BENZODIAZEPINES NEGATIVE ng/ml (CUTOFF=200)
[2019-06-11 03:12] LABS: OPIATES, URI POSITIVE ng/ml (CUTOFF=300)
[2019-06-11] MEDS ORDERED: clonazePAM 0.5 MG TABLET PO SCH (06:00)
[2019-06-11] MEDS ORDERED: PT OWN MED DRAWER 7, Y5N ONE (06:19)
[2019-06-11 06:48] VITALS: BP 130/69; PULSE 93; TEMP 98.8
[2019-06-11] MEDS ORDERED: PANTOPRAZOLE 40 MG TABLET (FP) PO SCH (07:00)
[2019-06-11] MEDS ORDERED: LURASIDONE HCL 20 MG TABLET PO SCH (07:00)
[2019-06-11 07:53] LABS: BASO % 0.5 % (0-2.0); EOS % 1.2 % (0-4.5); HEMATOCRIT 30.9 % (32.4-45.2); HEMOGLOBIN 10.1 GM/dl (10.7-15.3); LYMPH % 35.5 % (8-40); MCH 32.1 pg (25.7-33.7); MCHC 32.8 g/dl (32.0-36.0); MEAN CELL VOLUME 97.9 fl (80-96); MEAN PLT VOLUME 7.8 fl (7.5-11.1); MONO % 20.9 % (3.8-10.2); NEUT % 41.9 % (42.8-82.8); PLATELET COUNT 146 K/MM3 (134-434); RBC 3.16 M/mm3 (3.60-5.2); RDW 15.4 % (11.6-15.6); WHITE BLOOD COUNT 2.9 K/mm3 (4.0-10.8)
[2019-06-11 07:57] LABS: ALBUMIN 3.2 g/dl (3.4-5.0); BILIRUBIN,TOTAL 0.3 mg/dl (0.2-1); CALCIUM 8.2 mg/dl (8.5-10); CREATININE 0.6 mg/dl (0.55-1.3); POTASSIUM 3.2 mmol/L (3.5-5.1); TOT PROT 5.1 g/dl (6.4-8.2)
[2019-06-11] MEDS ORDERED: POTASSIUM CHLORIDE TABS 20 MEQ TABLET.ER (FP) PO ONE (08:44)
--- NOTE | 2019-06-11 09:51 | DS ---
Physical Exam: SUBJECTIVE: Patient seen and examined OBJECTIVE: Vital Signs Period Temp Pulse Resp BP Sys/Garcia Pulse Ox Last 24 Hr 97.7 F-98.8 F 74-93 16-18 95-130/50-75 94-96 PHYSICAL EXAM GENERAL: The patient is awake, alert, and fully oriented, in no acute distress. HEAD: Normal with no signs of trauma. EYES: PERRL, extraocular movements intact, sclera anicteric, conjunctiva clear. ENT: Ears normal, nares patent, oropharynx clear without exudates, moist mucous membranes. NECK: Trachea midline, full range of motion, supple. LUNGS: Breath sounds equal, clear to auscultation bilaterally, no wheezes, no crackles, no accessory muscle use. HEART: Regular rate and rhythm, S1, S2 without murmur, rub or gallop. ABDOMEN: Soft, nontender, nondistended, normoactive bowel sounds, no guarding, no rebound, no hepatosplenomegaly, no masses. EXTREMITIES: 2+ pulses, warm, well-perfused, no edema. NEUROLOGICAL: Cranial nerves II through XII grossly intact. Normal speech, gait not observed. PSYCH: Normal mood, normal affect. SKIN: Warm, dry, normal turgor, no rashes or lesions noted. LABS Laboratory Results - last 24 hr 06/10/19 06/10/19 06/10/19 20:25 20:25 23:00 WBC 3.2 L RBC 3.32 L Hgb 10.7 Hct 32.3 L MCV 97.2 H MCH 32.3 MCHC 33.2 RDW 15.1 D Plt Count 150 MPV 7.5 Absolute Neuts (auto) 1.4 Neutrophils % No Result Required. Neutrophils % (Manual) 54.0 Lymphocytes % No Result Required. Lymphocytes % (Manual) 32.0 Monocytes % Monocytes % (Manual) 14 H Eosinophils % Basophils % Platelet Estimate Adequate Sodium 143 Potassium 2.5 L* Chloride 104 Carbon Dioxide 34 H Anion Gap 5 L BUN 12.0 Creatinine 0.5 L Est GFR (CKD-EPI)AfAm 127.17 Est GFR (CKD-EPI)NonAf 109.72 Random Glucose 126 H Calcium 8.3 L Magnesium Total Bilirubin 0.3 AST 20 ALT 18 Alkaline Phosphatase 60 Total Protein 5.7 L Albumin 3.5 Opiates Screen Methadone Screen Barbiturate Screen Phencyclidine Screen Ur Amphetamines Screen MDMA (Ecstasy) Screen Benzodiazepines Screen Cocaine Screen U Marijuana (THC) Screen Alcohol, Quantitative < 3.0 06/10/19 06/11/19 06/11/19 23:00 01:00 07:00 WBC 2.9 L RBC 3.16 L Hgb 10.1 L Hct 30.9 L MCV 97.9 H MCH 32.1 MCHC 32.8 RDW 15.4 Plt Count 146 MPV 7.8 Absolute Neuts (auto) 1.3 Neutrophils % 41.9 L Neutrophils % (Manual) Lymphocytes % 35.5 Lymphocytes % (Manual) Monocytes % 20.9 H Monocytes % (Manual) Eosinophils % 1.2 Basophils % 0.5 Platelet Estimate Sodium Potassium Chloride Carbon Dioxide Anion Gap BUN Creatinine Est GFR (CKD-EPI)AfAm Est GFR (CKD-EPI)NonAf Random Glucose Calcium Magnesium 2.1 Total Bilirubin AST ALT Alkaline Phosphatase Total Protein Albumin Opiates Screen Positive A* Methadone Screen Negative Barbiturate Screen Negative Phencyclidine Screen Negative Ur Amphetamines Screen Negative MDMA (Ecstasy) Screen Positive A* Benzodiazepines Screen Negative Cocaine Screen Negative U Marijuana (THC) Screen Negative Alcohol, Quantitative 06/11/19 07:00 WBC RBC Hgb Hct MCV MCH MCHC RDW Plt Count MPV Absolute Neuts (auto) Neutrophils % Neutrophils % (Manual) Lymphocytes % Lymphocytes % (Manual) Monocytes % Monocytes % (Manual) Eosinophils % Basophils % Platelet Estimate Sodium 141 Potassium 3.2 L Chloride 103 Carbon Dioxide 34 H Anion Gap 4 L BUN 7.0 Creatinine 0.6 Est GFR (CKD-EPI)AfAm 119.77 Est GFR (CKD-EPI)NonAf 103.34 Random Glucose 123 H Calcium 8.2 L Magnesium 2.0 Total Bilirubin 0.3 AST 19 ALT 17 Alkaline Phosphatase 55 Total Protein 5.1 L Albumin 3.2 L Opiates Screen Methadone Screen Barbiturate Screen Phencyclidine Screen Ur Amphetamines Screen MDMA (Ecstasy) Screen Benzodiazepines Screen Cocaine Screen U Marijuana (THC) Screen Alcohol, Quantitative HOSPITAL COURSE: Date of Admission:06/10/19 Date of Discharge: 06/11/19 Minutes to complete discharge: 35 Discharge Summary Reason For Visit: SEIZURE/ HYPOKALEMIA Current Active Problems Hypokalemia (Acute) Seizure (Acute) Condition: Stable - Instructions Diet, Activity, Other Instructions: It is recommended you follow closely with your primary care provider Dr. Rodriguez. The following information is being provided to you should you decide to seek treatment for your drug addictions: Outpatient Care at [facility] Our outpatient programs provide day rehabilitation and day/evening clinic treatment for those struggling with chemical dependency and our attending physicians are psychiatrists who help those suffering from mental illness. Buprenorphine is an addiction medication made under the brand names of Suboxone and Subutex. Buprenorphine helps people to stop using heroin or other opioid drugs in prescription pain pills like oxycodone and hydrocodone that are found in medications like Percocet, OxyContin, Lortab and Vicodin. It can be used for detoxification or for a longer period of time to help someone who is addicted to these drugs and wants to quit. [facility] is now offering buprenorphine for patients in the outpatient system of [facility] at the following locations: [address] [address] [address] [facility] [address] [place] [phone] [facility] [address] [place] [phone] Referrals: Eriberto Rodriguez MD [Staff Physician] - Disposition: HOME - Home Medications Comprehensive Discharge Medication List: Ambulatory Orders clonazePAM [KlonoPIN] 1 mg PO TID tablet 05/18/16 Venlafaxine HCl ER [Effexor Xr -] 150 mg PO DAILY 02/26/18 traZODone HCL [Trazodone HCl] 200 mg PO HS 09/17/18 Lurasidone HCl [Latuda] 20 mg PO DAILY 01/14/19 Oxycodone HCl 5 mg PO PRN 06/10/19 This patient is new to me today: No Emergency Visit: Yes ED Registration Date: 06/10/19 Care time: The patient presented to the Emergency Department on the above date and was hospitalized for further evaluation of their emergent condition. Critical Care patient: No - Discharge Referral Referred to [facility] Yes Physician Referral: Eriberto Rodriguez MD (Int Med)
[2019-06-11] MEDS ORDERED: VENLAFAXINE HCL 75 MG E.R. CAPSULES (FP) PO SCH (10:00)
[2019-06-11] MEDS ORDERED: ENOXAPARIN NA (PORCINE) 40 MG/0.4 ML DISP.SYRIN SQ SCH (10:00)
[2019-06-11] MEDS ORDERED: VENLAFAXINE HCL 150 MG E.R. CAPSULE PO SCH (10:00)
--- NOTE | 2019-06-11 11:03 | EKG ---
Test Reason : Blood Pressure : / mmHG Vent. Rate : 077 BPM Atrial Rate : 077 BPM P-R Int : 138 ms QRS Dur : 088 ms QT Int : 512 ms P-R-T Axes : 070 053 053 degrees QTc Int : 579 ms NORMAL SINUS RHYTHM PROLONGED QT ABNORMAL ECG WHEN COMPARED WITH ECG OF 08-MAY-2019 06:58, [place] INTERVAL HAS INCREASED QT HAS LENGTHENED Confirmed by Bill Roy ([id number]) on 06/11/2019 11:03:08 AM Referred By: Confirmed By:Bill Roy
== END 2019-06-11 11:17 | disposition home or self-care (01) | DRG 101 ==
LOC: FER 19:52 → FM/S 21:25
PROVIDERS: ADMIT Internal Medicine; ATTEND Nurse Practitioner Acute Care
DX: G40.909 Epilepsy, unspecified, not intractable, without status epilepticus (principal); E87.6 Hypokalemia; F25.9 Schizoaffective disorder, unspecified; D64.9 Anemia, unspecified; K21.9 Gastro-esophageal reflux disease without esophagitis; F41.8 Other specified anxiety disorders; F50.9 Eating disorder, unspecified; Z87.891 Personal history of nicotine dependence; M45.9 Ankylosing spondylitis of unspecified sites in spine; F32.9 Major depressive disorder, single episode, unspecified; F10.10 Alcohol abuse, uncomplicated; F41.9 Anxiety disorder, unspecified; F11.10 Opioid abuse, uncomplicated
CPT/HCPCS: 36415; 71045-TC-FY; 80053; 80307; 83735; 85025; 93005; 99284-25; J7030